=== PATIENT | male | born 1980 | race African-American/Black ===

== ENCOUNTER 2022-10-17 10:10 | Outpatient (REF) | payer MEDICAID, SELFPAY ==
--- NOTE | ~2022-10-17 | XR_ITS ---
EXAMINATION: XR HAND, RIGHT CLINICAL INFORMATION: Right hand swelling. COMPARISON: None available. TECHNIQUE: PA, lateral, and oblique views of the right hand. FINDINGS: Moderate soft tissue swelling is seen most pronounced dorsally. A 4 mm radiopaque density is seen dorsally adjacent to the distal aspect of the fifth metacarpal. There is no acute fracture or dislocation. The joint spaces are unremarkable. XR/XR hand RT min 3V IMPRESSION: Moderate soft tissue swelling most pronounced dorsally with 4 mm radiopaque foreign body as detailed above. No acute underlying osseous abnormality.
== END 2022-10-17 10:11 | disposition home or self-care (01) ==
LOC: HO.HHCX 10:10
PROVIDERS: Visit Provider Family Medicine
DX: R22.31 Localized swelling, mass and lump, right upper limb (principal)
CPT/HCPCS: 73130

== ENCOUNTER → 2022-10-21 10:20 | Outpatient (BNVA) | payer MEDICAID, SELFPAY | PROVIDERS: PCP Internal Medicine; Visit Provider Internal Medicine | DX: M54.40 Lumbago with sciatica, unspecified side (principal) | CPT/HCPCS: 99202 ==

== ENCOUNTER 2022-12-04 06:05 | Outpatient (REF) | payer MEDICAID, SELFPAY ==
--- NOTE | ~2022-12-04 | FL_ITS ---
EXAMINATION: XR FLUOROSCOPY WITH IMAGES CLINICAL INFORMATION: Lumbago with sciatica, unspecified side. COMPARISON: None available. TECHNIQUE: Fluoroscopy Supervised By: Dr. Black. Fluoroscopy Time: 0.1 minutes. Cumulative Dose: 3.59 mGy. DAP: 0.487 Gycm2. Images: 2. FINDINGS: Images obtained demonstrate contrast most likely in the epidural space in the lower lumbar spine. Please see Dr. Black's report for full details. FL/FL guidance in treatment room IMPRESSION: Fluoroscopy was provided to the referring physician for spinal injection.
== END 2022-12-04 06:06 | disposition home or self-care (01) ==
LOC: CF 06:05
PROVIDERS: Visit Provider Internal Medicine
DX: M54.40 Lumbago with sciatica, unspecified side (principal)
CPT/HCPCS: 62323; J1040

== ENCOUNTER 2022-12-04 10:03 | Outpatient (AMB) | payer MEDICAID, SELFPAY ==
[2022-12-04 10:11] VITALS: BP 100/62; PULSE 62; RESP 14; O2SAT 98
--- NOTE | 2022-12-04 10:11 | MHC.OFFVIS ---
Intake Vital Signs 12/04/22 10:11 12/04/22 11:02 BP 100/62 104/80 Blood Pressure Location Rt brachial Rt brachial Position Sitting Sitting Respiration 14 14 Pulse 62 62 Pulse Source Pulse Oximeter Pulse Oximeter Pulse Oximetry (%) 98 100 Oxygen Delivery Method Room Air Room Air Intake Visit Reasons: INTERLAMINAR L4, L5 REBECCA Allergies No Known Allergies Allergy (Verified 12/04/22 10:12) HPI INTERLAMINAR L4, L5 REBECCA HPI Details Patient presents for scheduled procedure. Denies any recent cough, cold, infection, fever or other significant changes in medical history since last office visit. [facility] Medical History (Updated 10/21/22 @ 10:56 by Kevin Garay) Chronic low back pain Heartburn Lumbago with sciatica Pruritic dermatitis Physical Exam Vital Signs: Last Vital Signs Pulse 62 12/04/22 10:11 Resp 14 12/04/22 10:11 BP 100/62 12/04/22 10:11 Pulse Ox 98 12/04/22 10:11 Oxygen Delivery Method Room Air 12/04/22 10:11 Office Procedures Joint Injection/Drain Joint Injection/Drain Details: Interlaminar epidural steroid injection, L4/5, Right parasaggital After obtaining written consent, pre-procedure blood pressure and heart rate were stable and recorded in the nursing record. The patient was placed in the prone position. The lumbar area was widely prepped with chloraprep and draped in sterile fashion. Fluoroscopic guidance was used to identify the desired interlaminar space and for needle placement. Subcutaneous 0.5% lidocaine was used to anesthetize the skin overlying the target. A 20-gauge Shaikh needle was advanced to the epidural space using loss of resistance to contrast technique under fluoroscopic AP and contralateral oblique views. There was no evidence of heme or CSF and no paresthesias were elicited with needle placement. Confirmation of epidural needle placement was performed with 1cc of omnipaque 180. Next 3 ml 0.5% lidocaine mixed with 80 mg methylprednisolone was administered epidurally with no pain elicited on injection. The needle tract tubing was then cleared with 1 ml of 0.5% lidocaine. The needle was removed, skin cleansed and a sterile bandage was applied. The patient tolerated the procedure well and no complications were encountered. Following the procedure the patient's vital signs were stable. The patient was discharged home in good condition with post-procedural instructions. Time Out: Immediately prior to the procedure, the following was verbally confirmed that there is a signed consent form and that the correct patient, planned procedure, site and side are consistent with documentation and that necessary equipment and/or blood products are available prior to the start of the case. Complications: none EBL: <5 cc Coding 59217 - Cervical Epidural/Interlaminar with fluoroscopy Procedure code (CPT) selection complete Assessment & Plan Assessment & Plan (1) Lumbago with sciatica: Code(s): M54.40 - Lumbago with sciatica, unspecified side Plan Patient is status post right parasagittal interlaminar REBECCA at L4/5. Patient tolerated procedure well and was discharged home in stable condition with discharge instructions. All questions were answered. We will follow-up via telephone or in clinic to assess response to therapy. A follow-up appointment was made during today's visit. Orders: Orders FL guidance in treatment room Today M54.40 - Lumbago with sciatica, unspecified side Coding Level of Care Code Procedure Only Diagnoses Lumbago with sciatica M54.40 CPT Codes Coding - Joint 10: 69036 - Cervical Epidural/Interlaminar with fluoroscopy ([id number])
[2022-12-04 11:02] VITALS: BP 104/80; PULSE 62; RESP 14; O2SAT 100
== END 2022-12-04 11:02 | disposition home or self-care (01) ==
PROVIDERS: PCP Internal Medicine; Visit Provider Internal Medicine
DX: M54.16 Radiculopathy, lumbar region (principal)
CPT/HCPCS: 62323

== ENCOUNTER 2023-01-20 13:00 | Outpatient (AMB) | payer MEDICAID, SELFPAY ==
--- NOTE | 2023-01-20 13:23 | A.OFFVIS_ITS ---
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 A certified conservator artifacts was present during the visit. The patient reports 40% relief following the procedure. His lower back pain continues to be bothersome. His pain is more on the right side compared to the left side. He has no access to a swimming pool. He had received a call to schedule the physical therapy, but he has not started yet. He is interested in additional treatment options for his axial back pain. He denies significant radiation down his lower extremities. Past procedure: 12/04/22: Interlaminar epidural steroid injection, L4/5, Right parasaggital: 40% relief. [facility] Medical History (Updated 01/21/23 @ 12:36 by Lonnie Black MD) Lumbago with sciatica Heartburn Pruritic dermatitis Chronic low back pain Review of Systems Const All systems reviewed & are unremarkable except as noted in HPI and below Physical Exam Vital Signs: Last Vital Signs Pulse 73 01/20/23 13:25 Resp 14 01/20/23 13:25 BP 112/69 01/20/23 13:25 Pulse Ox 97 01/20/23 13:25 Oxygen Delivery Method Room Air 01/20/23 13:25 BMI result Body Mass Index 33.7 General: Appears afebrile. Alert and oriented. Mood and affect appropriate. Follows and participates in conversation appropriately. Respiratory effort is unlabored. Able to transition from sit to stand unassisted. Ambulates with bilaterally normal heel strike and toe off. Forward flexion reproduces pain in the lumbar spine. Extension is limited, but not as painful. Results Reviewed Results Reviewed: Significant Modic changes on the endplates of L4 and L5 vertebral bodies, worse on the right side consistent with patient's distribution of pain. Assessment & Plan Assessment & Plan (1) Vertebrogenic low back pain: Code(s): M54.51 - Vertebrogenic low back pain Plan Will consider BVN ablation/intracept procedure. I informedm the patient that insurance approval is required. I will look into intercept coverage for Medicaid and update the patient accordingly. For the time being, I encouraged him to continue with core strengthening exercises. I also advised him to swim for half an hour a day. Contact information for physical therapy was provided to the patient. Scribed for Dr. Black by Kevin Garay, medical corps officer, on 01/20/2023. I, Dr. Black, have personally reviewed and agree with the information entered by the scribe. Coding Level of Care Code Est Pt Level 3 (68446) Diagnoses Vertebrogenic low back pain M54.51
[2023-01-20 13:25] VITALS: BP 112/69; PULSE 73; RESP 14; O2SAT 97; BMI 33.7
== END 2023-01-20 14:05 | disposition home or self-care (01) ==
PROVIDERS: PCP Internal Medicine; Visit Provider Internal Medicine
DX: M54.51 Vertebrogenic low back pain (principal)
CPT/HCPCS: 99213

== ENCOUNTER → 2023-01-20 13:00 | Outpatient (BNVA) | payer MEDICAID, SELFPAY | PROVIDERS: PCP Internal Medicine; Visit Provider Internal Medicine | DX: M54.41 Lumbago with sciatica, right side (principal) | CPT/HCPCS: 99212 ==

== ENCOUNTER 2023-02-17 13:39 | Outpatient (RCR) | payer MEDICAID, SELFPAY ==
--- NOTE | 2023-02-18 07:44 | MHC.PT.EP ---
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 HE REPORTS SINCE THAT TIME SYMPTOMS HAVE REMAINED ABOUT THE SAME. THIS WEEK IN PARTICULAR HAS BEEN WORSE AND HE HAS DIFFICULTY GETTING OUT OF BED, HE REPORTS THE COLD EFFECTS HIS PAIN. RECENTLY HE HAD INJECTION WITHOUT SIGNIFCANT IMPROVEMENT. HE REPORTS BENDING, LIFTING, SITTING INCREASES HIS PAIN. AND STATES THAT STANDING UP IS UNCOMFORTABLE, HE PREFERS LAYING DOWN. HE LIVES IN APARTMENT WITH 4 STAIRS TO ENTER. HE RESIDES WITH A FRIEND WHO IS ABLE TO ASSIST NEEDED. SLEEPING ON SIDE, AT MOST 3 HOURS UPON EXAM IMPAIRMENTS INCLUDE ALTERED GAIT PATTERN AND POOR POSTURAL AWARENESS DUE TO MUSCULAR LENGTH ND STRENGTH IMBALANCES, WEAKNESS OF CORE AND HIP MUSCULATURE, DECREASED HIP ROM, DECREASED LUMBAR ROM, ALTERED SOFT TISSUE MOBIITY AND INCREASED PAIN. FUNCTIONAL LIMITATIONS INCLUDE DECREASED TOLERANCE TO STATIC STANDING, WALKING, SITTING, PUSHING, PULLING, LIFTING AND CARRYING. HE REPORTS DECREAED ABILITY TO PERFORM HOMEMAKING AND SELF CARE TASKS, INABILITY TO PERFORM WORK TASKS AND DECREASED PARTICIPATION IN COMMUNITY AND FITNESS ACTIVITIES. HE REPORTS DISRUPTED SLEEP. Frequency and Duration: The patient will be seen 2 X WEEK FOR 4 WEEKS Short Term Goals: INITIATE HEP AND PROMOTE SELF MANAGEMENT OF SYMPTOMS Label Press Operator Goals: INDEPENDENT HEP TO PERFORM LIFTING FROM FLOOR TO WAIST A MINIMUM OF 20# WITH NO INCREASE IN PAIN LEVELS TO PERFORM ALL ADLs AND HOMEMAKING TAKSS WITH PAIN NO GREATR THAN 2/10 TO DEMONSTRATE FULL LE ROM AND STRENGTH EQUAL JONATHAN Treatment Plan: Modalities to reduce pain, spasms and effusion. Manual therapy to restore motion and function. Therapeutic exercise to improve strength and flexibility. Neuromuscular re-education for posture and balance. Therapeutic activities to return to functional activities of daily living. Electronically signed by: Nayeli Diop PT DPT Please sign and return to therapist. Thank you for your referral.
--- NOTE | 2023-03-06 14:15 | MHC.PT.DC ---
[facility] [place] Office [place] Office [place] Office [address] Dipesh Casas [address] [phone] F: [phone] F: [phone] F: [phone] F: [phone] Physical Therapy Discharge Report Diagnosis: LOW BACK PAIN (KP) Date of Surgery: Date of Evaluation: 02/17/23 Date of Discharge: 03/06/23 Treatments to Date: 1 Cancellations to Date: 1 No Shows to Date: 3 Discharge Status: Visit Non-compliance Discharge Summary: Attended eval only, cancelled/no showed for next 4 visits and is DCed for non-compliance Electronically signed by: Nayeli Diop PT DPT Please sign and return to therapist. Thank you for your referral.
== END 2023-03-06 14:13 | disposition home or self-care (01) ==
LOC: HO.PT 13:39
PROVIDERS: PCP Internal Medicine; Visit Provider Internal Medicine
DX: M54.40 Lumbago with sciatica, unspecified side (principal)
CPT/HCPCS: 97110; 97162

== ENCOUNTER 2023-03-10 15:41 | Outpatient (REF) | payer MEDICAID, SELFPAY ==
--- NOTE | ~2023-03-10 | XR_ITS ---
EXAMINATION: XR KNEE, RIGHT CLINICAL INFORMATION: Pain COMPARISON: None available. TECHNIQUE: Three views of the right knee. FINDINGS: The inferior extent of an intramedullary johnathan is evident in the distal femoral shaft. Right knee demonstrates no fracture, dislocation or bone lesion. No significant joint effusion is evident. There are meniscal calcifications consistent with CPPD arthropathy. XR/XR knee RT 2V IMPRESSION: 1. Meniscal calcification of the right knee consistent with CPPD arthropathy. 2. No acute fracture or subluxation of the right knee.
== END 2023-03-10 15:42 | disposition home or self-care (01) ==
LOC: HO.HHCX 15:41
PROVIDERS: Visit Provider Student in an Organized Health Care Education/Training Program
DX: M25.561 Pain in right knee (principal)
CPT/HCPCS: 73560

== ENCOUNTER 2023-04-02 10:51 | Outpatient (AMB) | payer MEDICAID, SELFPAY ==
--- NOTE | 2023-04-02 11:04 | A.OFFVIS_ITS ---
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 The patient describes his pain as sharp in nature. Most of the pain is along the medial aspect of his kn ee. Patient states that he twisted his knee approximately 1 year ago. Since that time his symptoms have gotten worse. He has been wearing a knee brace which gives him only mild relief. He has also tried Tylenol and anti- inflammatory medicines which gave him minimal relief. He has had injections in the past which gave him no relief. He states that his right knee will give out several times per day. Allergies No Known Allergies Allergy (Verified 04/02/23 11:04) Medication List - Last Reconciled 04/02/23 by Danny Burden MD cyclobenzaprine 5 mg PO TID gabapentin 300 mg PO Q8H ibuprofen 800 mg PO TID lidocaine 4% (Salonpas (lidocaine)) 1 patch topical DAILY naproxen 500 mg PO BID omeprazole 20 mg PO BID PFSH Medical History (Updated 04/02/23 @ 11:44 by Danny Burden MD) Lumbago with sciatica Heartburn Pruritic dermatitis Chronic low back pain Physical Exam Const Other: Well-nourished well-developed very friendly male awake alert and oriented x3 in no acute distress Extrem Other: Bilateral lower extremity examination shows good capillary refill, no skin lesions noted, normal sensation light touch Right knee examination shows a minimal effusion, minimal crepitus with range of motion, tenderness along his medial joint line, positive Maurice's test, no instability Results Reviewed Results Reviewed: X-rays of the patient's right knee show minimal joint space narrowing, no acute bony abnormalities Assessment & Plan Assessment & Plan (1) Right knee pain: Code(s): M25.561 - Pain in right knee Plan Mr. Ji Valentin presents with progressively worsening right knee pain and mechanical symptoms possibly due to a tear of his medial meniscus. Thus, I will send the patient for an MRI of his right knee for further evaluation. I will see him back once the MRI is completed to discuss the findings and treatment options. Feel free to call me at any time should questions regarding his orthopedic management arise. Thank you very much for asking me to see this very friendly gentleman. I spent 22 minutes in reviewing the patient's records and imaging studies, seeing the patient and documenting in the medical record. Orders: Orders MR knee RT wo con Today M25.561 - Pain in right knee Coding Level of Care Code New Pt Level 2 (89712) Diagnoses Right knee pain M25.561
== END 2023-04-02 11:39 | disposition home or self-care (01) ==
PROVIDERS: PCP Internal Medicine; Visit Provider Orthopaedic Surgery
DX: M25.561 Pain in right knee (principal)
CPT/HCPCS: 99202

== ENCOUNTER → 2023-04-02 10:51 | Outpatient (BNVA) | payer MEDICAID, SELFPAY | PROVIDERS: PCP Internal Medicine; Visit Provider Orthopaedic Surgery | DX: M25.561 Pain in right knee (principal) | CPT/HCPCS: 99202 ==

== ENCOUNTER 2023-05-14 13:09 | Outpatient (AMB) | payer MEDICAID, SELFPAY ==
--- NOTE | 2023-05-14 13:10 | MHC.OFFVIS ---
Intake Vital Signs 05/14/23 13:11 Height 5 ft 10 in Weight 235 lb BMI 33.7 Intake Visit Reasons: ov- MRI review of right knee Intake Note: Jakub is a 42 year old male who presents for MRI review of his Right knee. The patient describes his knee pain as sharp in nature. Most of the pain is along the medial and lateral aspects of his knee. He has not had a cortisone injection given into his knee. Has had injections given into his low back. Has tried Tylenol and anti-inflammatory medicines which gave him minimal relief. 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 Allergies No Known Allergies Allergy (Verified 05/14/23 13:17) Medication List - Last Reconciled 05/14/23 by Danny Burden MD cyclobenzaprine 5 mg PO TID gabapentin 300 mg PO Q8H ibuprofen 800 mg PO TID lidocaine 4% (Salonpas (lidocaine)) 1 patch topical DAILY naproxen 500 mg PO BID omeprazole 20 mg PO BID PFSH Medical History (Updated 04/02/23 @ 11:44 by Danny Burden MD) Lumbago with sciatica Heartburn Pruritic dermatitis Chronic low back pain Physical Exam Vital Signs: BMI result Body Mass Index 33.7 Const Other: Well-nourished well-developed very friendly male awake alert and oriented x3 in no acute distress Extrem Other: Bilateral lower extremity examination shows good capillary refill, no skin lesions noted, normal sensation light touch Right knee examination shows a effusion, minimal crepitus with range of motion, tenderness along his medial and lateral joint lines, positive Maurice's test, no instability Office Procedures Joint Injection/Drain Joint Injection/Drain Primary Site: right knee Prep: site was prepped using aseptic technique Injected: 40 mg of, DepoMedrol and 1% plain lidocaine Procedure: The patient tolerated the procedure well Coding 90243 - Large joint Procedure code (CPT) selection complete Results Reviewed Results Reviewed: MRI of the patient's right knee shows mild diffuse degenerative changes as well as tearing of his medial and lateral menisci, no acute bony abnormalities Assessment & Plan Assessment & Plan (1) Right knee pain: Code(s): M25.561 - Pain in right knee Plan Mr. Ji Valentin presents with right knee pain and mechanical symptoms due to tearing of his medial and lateral menisci. I had a lengthy discussion with the patient regarding the treatment options. The risks and benefits of a right knee cortisone injection were discussed at length with the patient. The patient wished to proceed. He tolerated the injection well. He will continue with activities as tolerated. He will contact me prior to his follow-up appointment in 2-3 months should any questions or concerns arise. If he fails continued non operative treatments we will further discuss the risks and benefits of right knee arthroscopic surgery. Feel free to call me at any time should questions regarding his orthopedic management arise. I spent 22 minutes in reviewing the patient's records and imaging studies, seeing the patient and documenting in the medical record. Orders: Orders AMB Joint Injection/Aspiration Today M25.561 - Pain in right knee Coding Level of Care Code Est Pt Level 2 (22239) Diagnoses Right knee pain M25.561 CPT Codes Coding - 64009 Large joint: 44205 - Large joint ([id number])
[2023-05-14 13:11] VITALS: BMI 33.7
== END 2023-05-14 13:45 | disposition home or self-care (01) ==
PROVIDERS: PCP Internal Medicine; Referring Provider Internal Medicine; Visit Provider Orthopaedic Surgery
DX: M25.561 Pain in right knee (principal)
CPT/HCPCS: 20610; 99213

== ENCOUNTER → 2023-05-14 13:09 | Outpatient (BNVA) | payer MEDICAID, SELFPAY | PROVIDERS: PCP Internal Medicine; Visit Provider Orthopaedic Surgery | DX: M25.561 Pain in right knee (principal) | CPT/HCPCS: 20610; 99212; J1020 ==

== ENCOUNTER 2023-07-15 13:40 | Outpatient (AMB) | payer MEDICAID, SELFPAY ==
[2023-07-15 13:50] VITALS: BMI 33.7
--- NOTE | 2023-07-15 13:50 | A.OFFVIS_ITS ---
Intake Vital Signs 07/15/23 13:50 Height 5 ft 10 in Weight 235 lb BMI 33.7 Intake Visit Reasons: Bilateral knee pain Intake Note: Jakub is a 43 year old male who presents with complaints of progressively worsening bilateral knee pains. The patient describes his pains as sharp in nature. He has had cortisone injections in the past which gave him minimal relief. He has not had a viscosupplementation injection. He has done physical therapy exercises which aggravated his pain. He has tried Tylenol and anti- inflammatory medicines which gave him minimal relief. He would like to hold off on surgery for as long as possible. 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: [id number] Allergies No Known Allergies Allergy (Verified 05/14/23 13:17) Medication List - Last Reconciled 07/15/23 by Danny Burden MD cyclobenzaprine 5 mg PO TID gabapentin 800 mg PO TID ibuprofen 800 mg PO TID lidocaine 4% (Salonpas (lidocaine)) 1 patch topical DAILY naproxen 500 mg PO BID omeprazole 20 mg PO BID [facility] Medical History (Updated 04/02/23 @ 11:44 by Danny Burden MD) Lumbago with sciatica Heartburn Pruritic dermatitis Chronic low back pain Physical Exam Vital Signs: BMI result Body Mass Index 33.7 Const Other: Well-nourished well-developed very friendly male awake alert and oriented x3 in no acute distress Extrem Other: Bilateral lower extremity examination shows good capillary refill, no skin lesions noted, normal sensation light touch Bilateral knee examination shows minimal effusions, mild crepitus with range of motion, pain with range of motion, no instability Assessment & Plan Assessment & Plan (1) Pain in both knees: Code(s): M25.561 - Pain in right knee; M25.562 - Pain in left knee Plan Mr. Ji Valentin presents with bilateral knee pains due to early degenerative joint disease. I had a lengthy discussion with the patient regarding the treatment options. He wishes to hold off on surgery for as long as possible. I agree with this plan. He has not gotten good relief from cortisone injections in the past. Thus, I will see whether not the patient's insurance company will cover a viscosupplementation injection for both of his knees. I will see him back once the injections are available. If he fails continued non operative treatments we will further discuss the risks and benefits of surgical intervention. Feel free to call me at any time should questions regarding his orthopedic management arise. I spent 22 minutes in reviewing the patient's records and imaging studies, seeing the patient and documenting in the medical record. Coding Level of Care Code Est Pt Level 2 (62589) Diagnoses Pain in both knees M25.561; M25.562
== END 2023-07-15 14:10 | disposition home or self-care (01) ==
LOC: HO.HOS 13:40
PROVIDERS: PCP Internal Medicine; Visit Provider Orthopaedic Surgery
DX: M25.561 Pain in right knee (principal); M25.562 Pain in left knee
CPT/HCPCS: 99213

== ENCOUNTER → 2023-07-15 13:40 | Outpatient (BNVA) | payer MEDICAID, SELFPAY | PROVIDERS: PCP Internal Medicine; Visit Provider Orthopaedic Surgery | DX: M25.561 Pain in right knee (principal); M25.562 Pain in left knee | CPT/HCPCS: 99212 ==

== ENCOUNTER 2023-10-29 09:06 | Outpatient (AMB) | payer MEDICAID, SELFPAY ==
--- NOTE | 2023-10-29 09:28 | A.OFFVIS_ITS ---
Intake Visit Reasons: Bilateral knee pain Intake Note: Jakub is a 43 year old male who presents with complaints of bilateral knee pains. He describes his pains as sharp in nature. His pains have gotten worse over the last year in spite of continued non operative treatments. He has done physical therapy exercises which aggravated his pain. He has also tried Tylenol and naproxen which gave him minimal relief. He wishes to hold off on surgery for as long as possible. Allergies No Known Allergies Allergy (Verified 10/29/23 09:55) Medication List - Last Reconciled 10/29/23 by Danny Burden MD cyclobenzaprine 5 mg PO TID gabapentin 800 mg PO TID ibuprofen 800 mg PO TID lidocaine 4% (Salonpas (lidocaine)) 1 patch topical DAILY naproxen 500 mg PO BID omeprazole 20 mg PO BID [facility] Medical History (Updated 10/29/23 @ 15:05 by Danny Burden MD) Lumbago with sciatica Heartburn Pruritic dermatitis Chronic low back pain Physical Exam Const Other: Well-nourished well-developed very friendly male awake alert and oriented x3 in no acute distress Extrem Other: Bilateral lower extremity examination shows good capillary refill, no skin lesions noted, normal sensation light touch Bilateral knee examination shows minimal effusions, palpable crepitus with range of motion, pain with range of motion, no instability-rays of Office Procedures Joint Injection/Drain Joint Injection/Drain Primary Site: left knee Injected: 20 mg of (Euflexxa viscosupplementation) and 1% plain lidocaine Procedure: The patient tolerated the procedure well Coding 12573 - Large joint Procedure code (CPT) selection complete Joint Injection/Drain Joint Injection/Drain Primary Site: right knee Prep: site was prepped using aseptic technique Injected: 20 mg of (Euflexxa viscosupplementation) and 1% plain lidocaine Procedure: The patient tolerated the procedure well Coding 53898 - Large joint Procedure code (CPT) selection complete Results Reviewed Results Reviewed: X-rays of the patient's bilateral knee show joint space narrowing, subchondral sclerosis, no acute bony abnormalities Assessment & Plan Assessment & Plan (1) Osteoarthritis of left knee: Code(s): M17.12 - Unilateral primary osteoarthritis, left knee Category: Medical (2) Osteoarthritis of right knee: Code(s): M17.11 - Unilateral primary osteoarthritis, right knee Category: Medical (3) Pain in both knees: Code(s): M25.561 - Pain in right knee; M25.562 - Pain in left knee Plan Mr. Ji Valentin presents with bilateral knee pains due to degenerative joint disease. I had a lengthy discussion with the patient regarding the treatment options. He wishes to hold off on surgery if at all possible. I agree with this plan. The risks and benefits of bilateral knee Euflexxa viscosupplementation injections were discussed at length with the patient. The patient wished to proceed. He tolerated the injections well. Will continue with his activity modifications. He will follow up next week as scheduled. Feel free to call me at any time should questions regarding his orthopedic management arise. I spent 21 minutes in reviewing the patient's records and imaging studies, seeing the patient and documenting in the medical record. Orders: Orders AMB Joint Injection/Aspiration Today M17.12 - Unilateral primary osteoarthritis, left knee AMB Joint Injection/Aspiration Today M17.11 - Unilateral primary osteoarthritis, right knee Coding Level of Care Code Est Pt Level 3 (67353) Diagnoses Osteoarthritis of left knee M17.12 Osteoarthritis of right knee M17.11 Pain in both knees M25.561; M25.562 CPT Codes Coding - 14840 Large joint: 26417 - Large joint ([id number]) Coding - 61353 Large joint: 10355 - Large joint ([id number])
== END 2023-10-29 10:23 | disposition home or self-care (01) ==
PROVIDERS: PCP Internal Medicine; Visit Provider Orthopaedic Surgery
DX: M17.0 Bilateral primary osteoarthritis of knee (principal)
CPT/HCPCS: 20610; 99213

== ENCOUNTER → 2023-10-29 09:06 | Outpatient (BNVA) | payer MEDICAID, SELFPAY | PROVIDERS: PCP Internal Medicine; Visit Provider Orthopaedic Surgery | DX: M17.0 Bilateral primary osteoarthritis of knee (principal) | CPT/HCPCS: 20610; 99212; J7323 ==

== ENCOUNTER 2023-11-06 09:28 | Outpatient (AMB) | payer MEDICAID, SELFPAY ==
--- NOTE | 2023-11-06 09:56 | MHC.OFFVIS ---
Intake Visit Reasons: Inj- Kiko Knee Euflexxa #2 Intake Note: Jakub is a 43 year old male who presents to the office today for Bilateral Knee Euflexxa injections #2. He states that he got mild relief from the 1st set of injections. He continues with his home exercise program. Allergies No Known Allergies Allergy (Verified 10/29/23 09:55) Medication List - Last Reconciled 11/07/23 by Danny Burden MD cyclobenzaprine 5 mg PO TID gabapentin 800 mg PO TID ibuprofen 800 mg PO TID lidocaine 4% (Salonpas (lidocaine)) 1 patch topical DAILY naproxen 500 mg PO BID omeprazole 20 mg PO BID [facility] Medical History (Updated 10/29/23 @ 15:05 by Danny Burden MD) Lumbago with sciatica Heartburn Pruritic dermatitis Chronic low back pain Physical Exam Const Other: Well-nourished well-developed very friendly male awake alert and oriented x3 in no acute distress Extrem Other: Bilateral lower extremity examination shows good capillary refill, no skin lesions noted, normal sensation light touch Bilateral knee examination shows minimal effusions, palpable crepitus with range of motion, no instability Office Procedures Joint Injection/Drain Joint Injection/Drain Primary Site: left knee Prep: site was prepped using aseptic technique Injected: 20 mg of (Euflexxa viscosupplementation) and 1% plain lidocaine Procedure: The patient tolerated the procedure well Coding 17197 - Large joint Procedure code (CPT) selection complete Joint Injection/Drain Joint Injection/Drain Primary Site: right knee Prep: site was prepped using aseptic technique Injected: 20 mg of (Euflexxa viscosupplementation) and 1% plain lidocaine Procedure: The patient tolerated the procedure well Coding 56470 - Large joint Procedure code (CPT) selection complete Assessment & Plan Assessment & Plan (1) Osteoarthritis of left knee: Code(s): M17.12 - Unilateral primary osteoarthritis, left knee Category: Medical (2) Osteoarthritis of right knee: Code(s): M17.11 - Unilateral primary osteoarthritis, right knee Category: Medical Plan Mr. Ji Valentin presents with bilateral knee pains due to degenerative joint disease. The risks and benefits of a 2nd set of Euflexxa injections were discussed at length with the patient. The patient wished to proceed. He tolerated the injections well. He will continue with his home exercise program. He will follow up next week as scheduled. Feel free to call me at any time should questions regarding his orthopedic management arise. Orders: Orders AMB Joint Injection/Aspiration 11/06/23 M17.12 - Unilateral primary osteoarthritis, left knee AMB Joint Injection/Aspiration 11/06/23 M17.11 - Unilateral primary osteoarthritis, right knee Coding Level of Care Code Procedure Only Diagnoses Osteoarthritis of left knee M17.12 Osteoarthritis of right knee M17.11 CPT Codes Coding - 64739 Large joint: 46664 - Large joint ([id number]) Coding - 22295 Large joint: 26056 - Large joint ([id number])
== END 2023-11-06 10:23 | disposition home or self-care (01) ==
PROVIDERS: PCP Internal Medicine; Visit Provider Orthopaedic Surgery
DX: M17.0 Bilateral primary osteoarthritis of knee (principal)
CPT/HCPCS: 20610

== ENCOUNTER → 2023-11-06 09:28 | Outpatient (BNVA) | payer MEDICAID, SELFPAY | PROVIDERS: PCP Internal Medicine; Visit Provider Orthopaedic Surgery | DX: M17.0 Bilateral primary osteoarthritis of knee (principal) | CPT/HCPCS: 20610; J7323 ==

== ENCOUNTER 2023-11-12 09:46 | Outpatient (AMB) | payer MEDICAID, SELFPAY ==
--- NOTE | 2023-11-12 09:55 | MHC.OFFVIS ---
Vital Signs 11/12/23 09:56 Height 5 ft 10 in Weight 235 lb BMI 33.7 Intake Visit Reasons: Bilateral knee pain Intake Note: Jakub is a 43 year old male who presents for follow-up of his bilateral knee pains. At his last 2 appointments he received Euflexxa injections into both of his knees. He states that he has gotten minimal relief from the injections. He states that his knees might actually feel more ?sore? than prior to the injections. He does not wish for the 3rd set of injections which were scheduled for today. Folding Machine Feeder Required: Yes Folding Machine Feeder Language: Honduran Allergies No Known Allergies Allergy (Verified 11/12/23 09:56) Medication List - Last Reconciled 11/13/23 by Danny Burden MD cyclobenzaprine 5 mg PO TID gabapentin 800 mg PO TID ibuprofen 800 mg PO TID lidocaine 4% (Salonpas (lidocaine)) 1 patch topical DAILY naproxen 500 mg PO BID omeprazole 20 mg PO BID [facility] Medical History (Updated 11/13/23 @ 07:50 by Danny Burden MD) Lumbago with sciatica Heartburn Pruritic dermatitis Chronic low back pain Physical Exam Vital Signs: BMI result Body Mass Index 33.7 Const Other: Well-nourished well-developed very friendly male awake alert and oriented x3 in no acute distress Extrem Other: Bilateral lower extremity examination shows good capillary refill, no skin lesions noted, normal sensation light touch Bilateral knee examination shows minimal effusions, mild crepitus with range of motion, no instability Assessment & Plan Assessment & Plan (1) Pain in both knees: Code(s): M25.561 - Pain in right knee; M25.562 - Pain in left knee Category: Medical Plan Mr. Ji Valentin presents for follow-up of his bilateral knee pains due to degenerative joint disease. I had a lengthy discussion with the patient regarding the treatment options. Does not wish to proceed with the 3rd set of Euflexxa injections. He will continue with his activity modifications. He will follow up with me on an as-needed basis should his symptoms worsen in any way. Feel free to call me at any time should questions regarding his orthopedic management arise. I spent 21 minutes in reviewing the patient's records and imaging studies, seeing the patient and documenting in the medical record. Coding Level of Care Code Est Pt Level 3 (73626) Diagnoses Pain in both knees M25.561; M25.562
[2023-11-12 09:56] VITALS: BMI 33.7
== END 2023-11-12 10:11 | disposition home or self-care (01) ==
PROVIDERS: PCP Internal Medicine; Referring Provider Internal Medicine; Visit Provider Orthopaedic Surgery
DX: M25.561 Pain in right knee (principal); M25.562 Pain in left knee
CPT/HCPCS: 99212

== ENCOUNTER → 2023-11-12 09:46 | Outpatient (BNVA) | payer MEDICAID, SELFPAY | PROVIDERS: PCP Internal Medicine; Visit Provider Orthopaedic Surgery | DX: M25.561 Pain in right knee (principal); M25.562 Pain in left knee | CPT/HCPCS: 99212 ==

== ENCOUNTER 2024-01-22 08:09 | Outpatient (AMB) | payer MEDICAID, SELFPAY ==
--- NOTE | 2024-01-22 08:22 | A.OFFVIS_ITS ---
Intake Visit Reasons: Left knee pain and giving way Intake Note: Jakub is a 43 year old male who presents with complaints of progressively worsening left knee pain and giving way. He describes his pain as sharp and severe in nature. Most of the pain is along the medial aspect of his knee. He has failed the last 6 weeks of conservative treatment which included physical therapy exercises, topical creams, muscle relaxants, Tylenol and anti- inflammatory medicines. The patient has had both cortisone injections and viscosupplementation injections which gave him minimal relief. He states that his left knee will give out several times per day. The patient states that he has similar symptoms, but less severe, in his right knee. Environmental Health And Safety Intern Required: Yes Environmental Health And Safety Intern Language: Branch Examiner Name: Marco([id number]) Allergies No Known Allergies Allergy (Verified 01/22/24 08:22) Medication List - Last Reconciled 01/22/24 by Danny Burden MD cyclobenzaprine 5 mg PO TID gabapentin 800 mg PO TID ibuprofen 800 mg PO TID lidocaine 4% (Salonpas (lidocaine)) 1 patch topical DAILY omeprazole 20 mg PO BID [facility] Medical History (Updated 01/22/24 @ 08:38 by Danny Burden MD) Lumbago with sciatica Heartburn Pruritic dermatitis Chronic low back pain Physical Exam Const Other: Well-nourished well-developed very friendly male awake alert and oriented x3 in no acute distress Extrem Other: Bilateral lower extremity examination shows good capillary refill, no skin lesions noted, normal sensation light touch Left knee examination shows a minimal effusion, mild crepitus with range of motion, tenderness along his medial joint line, positive Maurice's test, no instability Results Reviewed Results Reviewed: Standing full weight-bearing x-rays of the patient's left knee show mild diffuse joint space narrowing, no acute bony abnormalities Assessment & Plan Assessment & Plan (1) Tear of medial meniscus of left knee: Code(s): S83.242A - Other tear of medial meniscus, current injury, left knee, initial encounter Category: Medical Plan Mr. Ji Valentin presents with progressively worsening left knee pain and mechanical symptoms most likely due to a tear of his medial meniscus. I will send the patient for an MRI of his left knee for further evaluation. I will see him back once the MRI is completed to discuss the findings and treatment options. Feel free to call me at any time should questions regarding his orthopedic management arise. I spent 22 minutes in reviewing the patient's records and imaging studies, seeing the patient and documenting in the medical record. Orders: Orders XR knee LT 3V Today M25.562 - Pain in left knee MR knee LT wo con Today S83.242A - Other tear of medial meniscus, current injury, left knee, initial encounter Coding Level of Care Code Est Pt Level 3 (49501) Complex EM visit Add On G2211 Diagnoses Tear of medial meniscus of left knee S83.242A
== END 2024-01-22 08:39 | disposition home or self-care (01) ==
PROVIDERS: PCP Internal Medicine; Referring Provider Internal Medicine; Visit Provider Orthopaedic Surgery
DX: S83.242A Other tear of medial meniscus, current injury, left knee, initial encounter (principal)
CPT/HCPCS: 99213

== ENCOUNTER 2024-01-22 11:11 | Outpatient (REF) | payer MEDICAID, SELFPAY | END 2024-01-22 11:12 | disposition home or self-care (01) | LOC: HO.HOSX 11:11 | PROVIDERS: Visit Provider Orthopaedic Surgery | DX: M25.562 Pain in left knee (principal); S83.242A Other tear of medial meniscus, current injury, left knee, initial encounter | CPT/HCPCS: 73562; 99212 ==

== ENCOUNTER 2024-01-26 17:00 | Outpatient (RCR) | payer MEDICAID, SELFPAY | END 2024-02-10 14:27 | disposition home or self-care (01) | LOC: HO.PT 17:00 | PROVIDERS: PCP Internal Medicine; Visit Provider Internal Medicine | DX: M54.51 Vertebrogenic low back pain (principal); M54.17 Radiculopathy, lumbosacral region | CPT/HCPCS: 97110; 97162; 97530 ==

== ENCOUNTER 2024-03-23 07:23 | Outpatient (REF) | payer MEDICAID, SELFPAY ==
--- NOTE | ~2024-03-23 | MR_ITS ---
EXAMINATION: MR KNEE WITHOUT CONTRAST, LEFT CLINICAL INFORMATION: Left knee pain and occasional swelling. Evaluate for a medial meniscal tear. COMPARISON: Left knee radiographs dated 01/22/2024. TECHNIQUE: MRI of the knee without contrast was performed using routine sequences on a high-field scanner. FINDINGS: MENISCI: Medial Meniscus: Degenerative intrasubstance signal within the posterior horn without definite articular surface tearing. Lateral Meniscus: Diffuse complex tearing involving the majority of the lateral meniscus with near-complete absence of the meniscal body. There is a superiorly displaced meniscal flap at the anterior aspect of the meniscal body measuring up to 1.1 cm in craniocaudal dimension. LIGAMENTS: Cruciate: Intact Collateral: Minimal edema adjacent to the medial collateral ligament which could represent a grade 1 sprain. Intact fibular collateral ligament. EXTENSOR MECHANISM: Intact quadriceps tendon. Mild proximal patellar tendinosis. No transverse tendon tear or tendon retraction. Normal patellofemoral alignment. ARTICULAR CARTILAGE/BONE: Patellofemoral Compartment: Patellar articular cartilage signal heterogeneity. Shallow trochlea with diffuse articular cartilage signal heterogeneity and surface irregularity. Areas of full-thickness fissuring at the medial trochlea where there are tiny marginal osteophytes. Medial Compartment: Intact articular cartilage. Lateral Compartment: Diffuse articular cartilage signal heterogeneity and surface irregularity with [id number] posterior weightbearing and posterior non-weightbearing articular cartilage loss. Minimal subchondral cystic change. [id number] marginal osteophytes. Cortical irregularity redemonstrated within the distal femur, consistent with a remote, healed fracture. Associated postsurgical artifact. JOINT FLUID AND BURSAE: Small joint effusion. MR/MR knee LT wo con IMPRESSION: 1. Moderate lateral compartment osteoarthritis. Diffuse complex tearing involving the majority of the lateral meniscus with near-complete absence of the meniscal body. Superiorly displaced meniscal flap adjacent to the anterior aspect of the meniscal body. 2. Degenerative intrasubstance signal within the medial meniscus posterior horn without articular surface tearing. 3. Possible grade 1 sprain of the medial collateral ligament. 4. Mild proximal patellar tendinosis. 5. Mild patellofemoral compartment osteoarthritis. Small joint effusion. Electronically signed by: Ben Yun MD 04/01/2024 03:01 PM [facility] [place]
== END 2024-03-23 07:24 | disposition home or self-care (01) ==
LOC: HO.MRI 07:23
PROVIDERS: PCP Internal Medicine; Visit Provider Orthopaedic Surgery
DX: S83.242A Other tear of medial meniscus, current injury, left knee, initial encounter (principal)
CPT/HCPCS: 73721

== ENCOUNTER 2024-04-12 09:22 | Outpatient (AMB) | payer MEDICAID, SELFPAY ==
[2024-04-12 09:25] VITALS: BMI 33.7
--- NOTE | 2024-04-12 09:25 | A.OFFVIS_ITS ---
Vital Signs 04/12/24 09:25 Height 5 ft 10 in Weight 235 lb BMI 33.7 Intake Visit Reasons: Left knee pain and giving way Intake Note: Jakub is a 43 year old male who presents with complaints of progressively worsening left knee pain and giving way. He describes his pain as sharp and severe in nature. Most of the pain is along the medial aspect of his knee. He has failed the last 6 weeks of conservative treatment which included physical therapy exercises, topical creams, muscle relaxants, Tylenol and anti- inflammatory medicines. The patient has had both cortisone injections and viscosupplementation injections which gave him minimal relief. He states that his left knee will give out several times per day. The patient states that he has similar symptoms, but less severe, in his right knee. General Internal Medicine Doctor Required: Yes General Internal Medicine Doctor Services: General Internal Medicine Doctor Present General Internal Medicine Doctor Name: ANA MARIA Huang/MARGARITA Allergies No Known Allergies Allergy (Verified 04/12/24 09:25) Medication List - Last Reconciled 04/12/24 by Danny Burden MD cyclobenzaprine 5 mg PO TID gabapentin 800 mg PO TID ibuprofen 800 mg PO TID lidocaine 4% (Salonpas (lidocaine)) 1 patch topical DAILY omeprazole 20 mg PO BID oxycodone-acetaminophen 5-325 mg 1 tab PO Q12H PRN PFSH Medical History Lumbago with sciatica Heartburn Pruritic dermatitis Chronic low back pain Physical Exam Vital Signs: BMI result Body Mass Index 33.7 Const Other: Well-nourished well-developed very friendly male awake alert and oriented x3 in no acute distress Extrem Other: Bilateral lower extremity examination shows good capillary refill, no skin lesions noted, normal sensation light touch Left knee examination shows a minimal effusion, minimal crepitus with range of motion, tenderness along his medial and lateral joint lines, positive Maurice's test, no instability Results Reviewed Results Reviewed: Standing full weight-bearing x-rays of the patient's left knee show mild diffuse joint space narrowing, no acute bony abnormalities MRI of the patient's left knee shows mild diffuse degenerative changes as well as tearing of the medial and lateral menisci Assessment & Plan Assessment & Plan (1) Tear of medial meniscus of left knee: Code(s): S83.242A - Other tear of medial meniscus, current injury, left knee, initial encounter Category: Medical Plan Mr. Ji Valentin presents with progressively worsening left knee pain and mechanical symptoms due to tearing of his medial and lateral menisci. I had a lengthy discussion with the patient regarding the treatment options. At this point he has failed continued non operative treatments. The risks and benefits of left knee arthroscopic surgery were discussed at length with the patient. The patient wishes to proceed with surgery. Surgery will most likely involve left knee arthroscopic partial medial and lateral meniscectomies. The patient does understand that he may not get 100% relief of his symptoms depending on the severity of his degenerative changes. He will be scheduled for next available date. He will follow-up as instructed. Feel free to call me at any time should questions regarding his orthopedic management arise. I spent 20 minutes in reviewing the patient's records and imaging studies, seeing the patient and documenting in the medical record. Coding Level of Care Code Est Pt Level 3 (96129) Complex EM visit Add On G2211 Diagnoses Tear of medial meniscus of left knee S83.242A
== END 2024-04-12 09:42 | disposition home or self-care (01) ==
PROVIDERS: PCP Internal Medicine; Visit Provider Orthopaedic Surgery
DX: S83.242A Other tear of medial meniscus, current injury, left knee, initial encounter (principal)
CPT/HCPCS: 99214

== ENCOUNTER → 2024-04-12 09:22 | Outpatient (BNVA) | payer MEDICAID, SELFPAY | PROVIDERS: PCP Internal Medicine; Visit Provider Orthopaedic Surgery | DX: S83.242A Other tear of medial meniscus, current injury, left knee, initial encounter (principal) | CPT/HCPCS: 99212 ==

== ENCOUNTER 2024-05-17 05:37 | Day surgery (SDC) | payer MEDICAID, SELFPAY ==
[2024-05-13 13:03] VITALS: BMI 33.7
--- NOTE | 2024-05-14 12:22 | HO.ANESPROP2 ---
Documented by User: Tere Hammer NP 05/14/24 12:22 HPI - Anesthesia Eval Consult details Narrative: 43yo M for Left Knee Arthroscopy with partial medial and lateral meniscectomy PMFSH Active Problems Active Problems: All Active Problems Tear of medial meniscus of left knee (Acute) Left knee pain (Acute) Bilateral knee pain (Acute) Osteoarthritis of right knee (Acute) Osteoarthritis of left knee (Acute) Right knee pain (Acute) Vertebrogenic low back pain (Acute) Lumbago with sciatica (Acute) Past Medical History Medical History Lumbago with sciatica Heartburn Pruritic dermatitis Chronic low back pain Surgical History Surgical History Surgical history unknown Social History Social History Are you a primary insurance healthcare representative to a significant other at home: No Do you presently have visiting nurse or other home services: No Patient Tobacco Use Status: Current everyday Tobacco user Cigarettes Per Day: 10 Use of substances other than those prescribed or required for medical reasons: No Have you been hit, kicked, punched, or otherwise hurt by someone within the past year? If so, by whom?: No Are you DNR?: No Advance Directives: No Advance Directives Information Provided: Yes Advance Directives on File: No Recently lost weight without trying: No Nutrition Risks: No Nutritional Risk Poor oral hygiene: No Meds Allergies Allergy/AdvReac Type Severity Reaction Status Date / Time No Known Allergies Allergy Verified 05/17/24 06:23 Active Medications: Current Medications Cefazolin Sodium/Dextrose (Ancef) 2 gm in 50 mls @ 100 mls/hr IV PREOP ONE Stop: 05/17/24 06:11 Home Medications ?Medication ?Instructions ?Recorded ?Confirmed ?Last Taken ?Type cyclobenzaprine 5 mg tablet 5 mg PO TID 10/21/22 05/17/24 Unknown History ibuprofen 800 mg tablet 800 mg PO TID 10/21/22 05/17/24 Unknown History lidocaine 4 % topical patch 1 patch topical DAILY 10/21/22 05/17/24 Unknown History (Salonpas (lidocaine)) omeprazole 20 mg capsule,delayed 20 mg PO BID 10/21/22 05/17/24 Unknown History release gabapentin 800 mg tablet 800 mg PO TID 07/15/23 05/17/24 Unknown History oxycodone-acetaminophen 5 mg-325 1 tab PO Q12H PRN severe pain 04/12/24 05/17/24 Unknown History mg tablet Exam Height,Weight and Vital Signs: Height 5 ft 10 in Weight 106.594 kg Assessment and Plan Assessment Anesthesia Assessment: Chart Reviewed Documented by User: Isa Garcia MD 05/17/24 07:30 PMFSH Past Medical History Medical History Lumbago with sciatica Heartburn Pruritic dermatitis Chronic low back pain Family History Family history of problems with anesthesia: No Surgical History Surgical History Surgical history unknown History of Problems with Anesthesia: No Social History Social History Are you a primary insurance healthcare representative to a significant other at home: No Do you presently have visiting nurse or other home services: No Patient Tobacco Use Status: Current everyday Tobacco user Cigarettes Per Day: 10 Use of substances other than those prescribed or required for medical reasons: No Have you been hit, kicked, punched, or otherwise hurt by someone within the past year? If so, by whom?: No Are you DNR?: No Advance Directives: No Advance Directives Information Provided: Yes Advance Directives on File: No Recently lost weight without trying: No Nutrition Risks: No Nutritional Risk Poor oral hygiene: No Meds Allergies Allergy/AdvReac Type Severity Reaction Status Date / Time No Known Allergies Allergy Verified 05/17/24 06:23 Home Medications ?Medication ?Instructions ?Recorded ?Confirmed ?Last Taken ?Type cyclobenzaprine 5 mg tablet 5 mg PO TID 10/21/22 05/17/24 Unknown History ibuprofen 800 mg tablet 800 mg PO TID 10/21/22 05/17/24 Unknown History lidocaine 4 % topical patch 1 patch topical DAILY 10/21/22 05/17/24 Unknown History (Salonpas (lidocaine)) omeprazole 20 mg capsule,delayed 20 mg PO BID 10/21/22 05/17/24 Unknown History release gabapentin 800 mg tablet 800 mg PO TID 07/15/23 05/17/24 Unknown History oxycodone-acetaminophen 5 mg-325 1 tab PO Q12H PRN severe pain 04/12/24 05/17/24 Unknown History mg tablet Exam Airway Mallampati Class: II TM Dist: >3cm Neck ROM: Full Heart: rrr Lungs: cta Assessment and Plan Assessment Anesthesia Assessment: Anesthesia Plan Discussed Final Anesthetic Review Family History of Problems with Anesthesia: No History of Problems with Anesthesia: No NPO: Yes ASA Class: II Final Preanesthetic Review: No Changes in Pt Med Stat, Meds/Allgs Chart Reviewed, Consent Obtained/Reviewed and Anes Risks/Benef Reviewed Patient Risk: Intermediate Procedure Risk: Low Anesthetic Plan Anesthetic Plan: GA Disposition: Standard PACU
[2024-05-17] VITALS (10 sets, daily range): BP systolic 116–130; BP diastolic 46–79; PULSE 55–67; RESP 10–17; TEMP 36.6–36.7; O2SAT 94–99; BMI 33.7
[2024-05-17] MEDS: Lactated Ringers 1,000 ML 100 ML IVCONT (06:46)
--- NOTE | 2024-05-17 06:56 | PC.NURSE ---
Pt with $820.00 in liu on person. Offered security lock up option, pt declined. Pt kept liu in wallet inside of sweater. Co signed by charge nurse.
--- NOTE | 2024-05-17 08:42 | P.BOP_ITS ---
Brief Operative Note Date of Service: 05/17/24 Pre-op diagnosis: Left knee medial meniscus tear, left knee lateral meniscus tear, left knee degenerative joint disease Post-op diagnosis: same Procedure: Left knee diagnostic arthroscopy with left knee arthroscopic partial medial and lateral meniscectomies, left knee arthroscopic chondroplasty of the trochlear groove articular surface Implants: None Surgeon: Danny Burden MD Anesthesia: GLMA Was an Automobile Damage Appraiser used for this Procedure?: No Estimated blood loss (mL): 10 Pathology: none sent Condition: stable Disposition: PACU
--- NOTE | 2024-05-17 08:43 | P.OP_ITS ---
Operative Note Operative Note Date of Service: 05/17/24 Narrative: After the patient was identified as Jakub Valentin and his left knee was initialed by myself they were brought to the operating room where general anesthesia was induced by the anesthesiologist in routine fashion. The patient was given 2 g of IV Ancef preoperatively for infection prophylaxis. The patient's left lower extremity was prepped and draped in sterile fashion. A formal time-out was completed. Marcaine was injected into the planned incision sites as well as the patient's left knee joint. A #11 scalpel blade was used to make an anterolateral portal 1 cm proximal to the joint line and 1 cm lateral to the patellar tendon. Blunt trocar technique was used to enter the suprapatellar pouch with the knee in extension. Diagnostic arthroscopy showed multiple bands of thickened plica which would be excised at the end of the procedure. There were no loose bodies or abnormalities found in either the medial or lateral gutters. The articular surface of the patella showed diffuse grades 1 and 2 degenerative changes. The trochlear groove articular surface showed diffuse grades 2 and 3 degenerative changes. The patient's knee was flexed to 45 degrees and a valgus force was placed upon it. The medial compartment was entered. An anteromedial portal was made 1 cm proximal to the joint line and 1 cm medial to the patellar tendon. Probing of the medial meniscus showed a radial tear of the anterior horn. A partial medial meniscectomy was performed using the arthroscopic shaver. Following the partial meniscectomy the remainder of the meniscus tissue was stable. There were diffuse grades 1 and 2 degenerative changes of the medial femoral condyle as well as grade 1 degenerative changes of the medial tibial plateau. The articular surfaces of the medial femoral condyle and medial tibial plateau were already smooth so no chondroplasty was indicated. The patient's knee was placed into a neutral position. There was no injury to the anterior cruciate ligament. The patient's knee was then placed in the figure of 4 position and the lateral compartment was entered. There was a radial tear of the anterior horn of the lateral meniscus. A partial lateral meniscectomy was performed using the arthroscopic shaver. Following the partial meniscectomy the remainder of the meniscus tissue was stable. There were minimal degenerative changes of the lateral femoral condyle and lateral tibial plateau. The patient's knee was once again brought into extension and the suprapatellar pouch was entered. The arthroscopic shaver and the ArthroCare Wand were used to excise the thickened bands of plica. The articular surface of the trochlear groove was then made smooth using the arthroscopic shaver. The undersurface of the patella was already smooth so no chondroplasty was indicated. The knee joint was irrigated and then drained. All arthroscopic instruments were removed. The 2 portals were closed with 3-0 nylon interrupted suture. The knee joint was injected with Marcaine. Dry st erile dressing and Zach bandages were placed over the patient's knee. The patient was awoken and extubated in the operating room. The patient was transferred to the recovery room in stable condition.
[2024-05-17] MEDS: cefTRIAXone sodium 1 GM VIAL IVPUSH (08:52)
[2024-05-17] MEDS: fentaNYL citrate/PF 100 MCG/2 ML VIAL 25 MCG IVPUSH ×3 (09:00→09:10)
== END 2024-05-17 10:19 | disposition home or self-care (01) ==
PROVIDERS: PCP Internal Medicine; Visit Provider Orthopaedic Surgery
PROC: (CPT 29870; principal; 2024-05-17 07:30)
DX: S83.242A Other tear of medial meniscus, current injury, left knee, initial encounter (principal); S83.282A Other tear of lateral meniscus, current injury, left knee, initial encounter; M17.12 Unilateral primary osteoarthritis, left knee; M67.52 Plica syndrome, left knee; M23.52 Chronic instability of knee, left knee; M25.562 Pain in left knee; G89.29 Other chronic pain; M54.40 Lumbago with sciatica, unspecified side; X58.XXXA Exposure to other specified factors, initial encounter; Y93.9 Activity, unspecified; Y92.9 Unspecified place or not applicable; Y99.9 Unspecified external cause status; R12 Heartburn; L30.8 Other specified dermatitis; Z79.899 Other long term (current) drug therapy; Z79.1 Long term (current) use of non-steroidal anti-inflammatories (NSAID)
CPT/HCPCS: 29880; 29876; J0131; J0171; J0690; J0696; J1100; J1885; J2003; J2405; J2704; J2795; J3010

== ENCOUNTER → 2024-05-17 05:37 | Outpatient (BNV) | payer MEDICAID, SELFPAY | PROVIDERS: PCP Internal Medicine; Visit Provider Orthopaedic Surgery | DX: S83.242A Other tear of medial meniscus, current injury, left knee, initial encounter (principal); S83.282A Other tear of lateral meniscus, current injury, left knee, initial encounter | CPT/HCPCS: 29880 ==

== ENCOUNTER 2024-06-01 09:09 | Outpatient (AMB) | payer MEDICAID, SELFPAY ==
[2024-06-01 09:12] VITALS: BMI 33.7
--- NOTE | 2024-06-01 09:12 | MHC.OFFVIS ---
Vital Signs 06/01/24 09:12 Height 5 ft 10 in Weight 235 lb BMI 33.7 Intake Visit Reasons: PO LT knee 05/17/24 Intake Note: Jakub is a 43 year old male who presents today for his first post operative visit after undergoing left knee arthroscopic surgery on 05/17/24. He reports mild to moderate discomfort in his left knee. He denies any fevers or chills. He continues with his activity modifications. Change Management Facilitator Required: Yes Change Management Facilitator Language: Secondary Social Studies Teacher Services: Change Management Facilitator Present Change Management Facilitator Name: JassonANA MARIA workman/MARGARITA Allergies No Known Allergies Allergy (Verified 06/01/24 09:13) Medication List - Last Reconciled 06/01/24 by Danny Burden MD cyclobenzaprine 5 mg PO TID gabapentin 800 mg PO TID ibuprofen 800 mg PO TID lidocaine 4% (Salonpas (lidocaine)) 1 patch topical DAILY omeprazole 20 mg PO BID oxycodone 5 mg PO Q6H PRN PFSH Medical History Lumbago with sciatica Heartburn Pruritic dermatitis Chronic low back pain Surgical History Surgical history unknown Social History Are you a primary ambulatory care coordinator to a significant other at home: No Do you presently have visiting nurse or other home services: No Patient Tobacco Use Status: Current everyday Tobacco user Cigarettes Per Day: 10 Physical Exam Vital Signs: BMI result Body Mass Index 33.7 Extrem Other: Left knee examination shows that the surgical incisions are healing well, no erythema, mild discomfort with range of motion, no instability Assessment & Plan Assessment & Plan (1) Left knee pain: Code(s): M25.562 - Pain in left knee Category: Medical Plan Mr. Ji Valentin is doing well after undergoing left knee arthroscopic surgery on 05/17/2024. His sutures were removed and Steri-Strips placed over his incisions. He will continue with his home stretching program. He will contact me prior to his follow-up appointment in 4-6 weeks should any questions or concerns arise. Feel free to call me at any time should questions regarding his orthopedic management arise. Coding Level of Care Code Global (59196) Diagnoses Left knee pain M25.562
== END 2024-06-01 09:24 | disposition home or self-care (01) ==
LOC: HO.HOS 09:09
PROVIDERS: PCP Internal Medicine; Visit Provider Orthopaedic Surgery
DX: M25.562 Pain in left knee (principal)
CPT/HCPCS: 99024

== ENCOUNTER → 2024-06-01 09:09 | Outpatient (BNVA) | payer MEDICAID, SELFPAY | PROVIDERS: PCP Internal Medicine; Visit Provider Orthopaedic Surgery | DX: M25.562 Pain in left knee (principal) | CPT/HCPCS: 99212 ==

== ENCOUNTER 2024-07-05 14:01 | Outpatient (REF) | payer MEDICAID, SELFPAY ==
[2024-07-13 10:40] LABS: Benzoylecgonine 117
== END 2024-07-05 14:02 | disposition home or self-care (01) ==
LOC: HO.HHCLNP 14:01
PROVIDERS: Visit Provider Internal Medicine
DX: M54.41 Lumbago with sciatica, right side (principal); G89.29 Other chronic pain
CPT/HCPCS: 36415; 80353

== ENCOUNTER 2024-08-26 10:22 | Outpatient (AMB) | payer MEDICAID, SELFPAY ==
--- NOTE | 2024-08-26 10:28 | A.OFFVIS_ITS ---
Vital Signs 08/26/24 10:29 Height 5 ft 10 in Weight 235 lb BMI 33.7 Intake Visit Reasons: PO- LT knee 05/17/24 Intake Note: Jakub is a 44 year old male who presents with complaints of mild to moderate discomfort in his left knee after undergoing left knee arthroscopic surgery on 05/17/2024. He also reports intermittent weakness in his left leg. He states that his left knee does give out at times. He does not wish to go to formal physical therapy. Public Relations Specialist Required: Yes Public Relations Specialist Language: Service Desk Agent Services: Public Relations Specialist Present Public Relations Specialist Name: LISSA HuangAnnamaria/MARGARITA Allergies No Known Allergies Allergy (Verified 08/26/24 10:29) Medication List - Last Reconciled 08/26/24 by Danny Burden MD cyclobenzaprine 5 mg PO TID gabapentin 800 mg PO TID ibuprofen 800 mg PO TID lidocaine 4% (Salonpas (lidocaine)) 1 patch topical DAILY omeprazole 20 mg PO BID oxycodone 5 mg PO Q6H PRN PFSH Medical History Lumbago with sciatica Heartburn Pruritic dermatitis Chronic low back pain Surgical History Surgical history unknown Social History (System 07/08/24 @ 15:43 by Adam Cristina) Are you a primary direct care specialist to a significant other at home: No Do you presently have visiting nurse or other home services: No Patient Tobacco Use Status: Current everyday Tobacco user Cigarettes Per Day: 10 Physical Exam Vital Signs: BMI result Body Mass Index 33.7 Const Other: Well-nourished well-developed very friendly male awake alert and oriented x3 in no acute distress Extrem Other: Left knee examination shows that the surgical incisions are well healed, no erythema, mild crepitus with range of motion come off mild to moderate pain with range of motion Assessment & Plan Assessment & Plan (1) Osteoarthritis of left knee: Code(s): M17.12 - Unilateral primary osteoarthritis, left knee Category: Medical Plan Mr. Workman presents with continued discomfort in his left knee after undergoing left knee arthroscopic surgery on 05/17/2024 due to residual degenerative joint disease. He also has intermittent symptoms of instability. Thus, I did have him fitted with a knee brace. I do find that the knee braces a medical necessity to help prevent future falls. We will hold off on an injection at this time. He will contact me prior to his follow-up appointment in 2-3 months should any questions or concerns arise. I spent 22 minutes in reviewing the patient's records and imaging studies, seeing the patient and documenting in the medical record. Coding Level of Care Code Est Pt Level 3 (39291) Complex EM visit Add On G2211 Diagnoses Osteoarthritis of left knee M17.12
[2024-08-26 10:29] VITALS: BMI 33.7
--- OUTSIDE RECORDS SUMMARY | 2024-08-26 11:37 | XMS_ITS | Encounter Summary ---
Author Organization [employer] Address [address] [facility] 7 [place] [address] Care Team Providers Care Heat Sealing Machine Operator Name Role Phone Cony Chapman MD Primary Care Provide r Reason for Visit * Reason Comments Med Refill Encounter Details Date Type Department Care Team ([facility] Contact Info) Description 08/25/2024 Refill [facility] [address] [place], [place] [phone] Cony Chapman MD [address] [place] [address] Heartburn Social History Tobacco Use Types Packs/Day Years Used Date Smoking Tobacco: Every Day Cigarettes Passive Smoke Exposure: Current Smokeless Tobacco: Never Alcohol Use Standard Drinks/Week Comments Yes 0 (1 standard drink = 0.6 oz pur e alcohol) Depression Answer Date Recorded Patient Health Questionnaire-9 Score 11 08/03/2024 Patient Health Questionnaire-9 Score 11 08/03/2024 Last PHQ-9: Questionnaire Data Not on file 0 08/03/2024 Housing Stability Answer Date Recorded What is your housing situation today? I do not have housing (Staying with others, in a hotel, in a detention, living outside on the street, on a beach, in a car, or in a park 07/27/[address] you li ve. Do you have problems with any of the following? None of the above 07/27/2024 Food Insecurity Answer Date Recorded Within the past 12 months, y ou worried that your food would run out before you got money to buy more: Often true 07/27/2024 Within the past 12 months,th e food you bought just didn't last and you didn't have enough money to get more: Often true 11/2024 Transportation Answer Date Recorded In the past 12 months, has l ack of transportation kept you from medical appts, meetings, work or from getting things needed for daily living? No 02/26/2024 Utilities Answer Date Recorded In the past 12 months, has t he electric, gas, oil or water company threatened to shut off services in your home? No 02/26/2024 Depression Answer Date Recorded Patient Health Questionnaire-2 Score 4 08/03/2024 Internet Access Answer Date Recorded Internet Access Q1 Yes 02/26/2024 Internet Access Q2 Not on file 02/26/2024 Sex and Gender Information Value Date Recorded Sex Assigned at Male 02/18/2022 10:40 AM EDT Legal Sex Male 10:40 AM EDT Gender Identity Male 02/18/2022 10:40 AM EDT Sexual Orientation Straight 02/18/2022 10 :40 AM EDT documented as of this encounter Plan of Treatment Upcoming Encounters Date Type Department Care Team (Late st Contact Info) Description 09/03/2024 11:30 AM EDT Medication Management [address] [address] Forest Slade, PharmD [address] [place] [address] 10/25/2024 10:00 AM EDT Clinical Support [address] [address] Kaylee Maxwell, KATHY documented as of this encounter Visit Diagnoses Diagnosis Heartburn documented in this encounter Additional Health Concerns Assessment Noted Time PHQ-9 Depression Total Score: 11 025 9:54 AM EDT documented as of this encounter Care Teams Heat Sealing Machine Operator Relationship Specialty Start Date End Date Cony Chapman MD [address] [place] [address] PCP - General Family Medicine 02/01/22 documented as of this encounter
--- OUTSIDE RECORDS SUMMARY | 2024-08-26 11:37 | XMS_ITS | Encounter Summary ---
Author Organization [employer] Address [address] [place] [address] Care Team Providers Care Needle Loom Weaver Name Role Phone Cony Chapman MD Primary Care Provide r Encounter Details Date Type Department Care Team ([facility] st Contact Info) Description 12/08/2023 Orders Only [facility] [address] [place] [phone] Cony Chapman MD [address] [place] [address] Social History Tobacco Use Types Packs/Day Years Used Date Smoking Tobacco: Every Day Cigarettes Passive Smoke Exposure: Current Smokeless Tobacco: Never Alcohol Use Standard Drinks/Week Comments Yes 0 (1 standard drink = 0.6 oz pur e alcohol) Depression Answer Date Recorded Patient Health Questionnaire-9 Score 18 12/05/2023 Patient Health Questionnaire-9 Score 18 12/05/2023 Last PHQ-9: Questionnaire Data Not on file 0 12/05/2023 Housing Stability Answer Date Recorded What is your housing situation today? I have maria a smith 02/05/[address] you li ve. Do you have problems with any of the following? None of the above 02/05/2023 Food Insecurity Answer Date Recorded Within the past 12 months, y ou worried that your food would run out before you got money to buy more: Never True 02/05/2023 Within the past 12 months,th e food you bought just didn't last and you didn't have enough money to get more: Never True Transportation Answer Date Recorded In the past 12 months, has l ack of transportation kept you from medical appts, meetings, work or from getting things needed for daily living? Yes, it has kept me from medical appointments or getting medications. 01/26/2023 Utilities Answer Date Recorded In the past 12 months, has t he electric, gas, oil or water company threatened to shut off services in your home? No 02/05/2023 Depression Answer Date Recorded Patient Health Questionnaire-2 Score 5 12/05/2023 Sex and Gender Information Value Date Recorded Sex Assigned at Male 02/18/2022 10:40 AM EDT Legal Sex Male 10:40 AM EDT Gender Identity Male 02/18/2022 10:40 AM EDT Sexual Orientation Straight 02/18/2022 10 :40 AM EDT documented as of this encounter Plan of Treatment Upcoming Encounters Date Type Department Care Team (Late st Contact Info) Description 09/03/2024 11:30 AM EDT Medication Management [address] [address] Forest Slade, PharmD [address] [place] [id number] 10/25/2024 10:00 AM EDT Clinical Support [address] [address] Kaylee Maxwell, KATHY documented as of this encounter Visit Diagnoses Not on filedocumented in this encounter Additional Health Concerns Assessment Noted Time PHQ-9 Depression Total Score: 18 024 10:00 AM EDT documented as of this encounter Care Teams Needle Loom Weaver Relationship Specialty Start Date End Date Cony Chapman MD [address] [place] [phone] PCP - General Family Medicine 02/01/22 documented as of this encounter
--- OUTSIDE RECORDS SUMMARY | 2024-08-26 11:37 | XMS_ITS | Encounter Summary ---
Author Organization [employer] Address [address] [facility] [address] [place] [address] Care Team Providers Care Calenderer Name Role Phone Cony Chapman MD Primary Care Provide r Reason for Visit * Reason Comments Med Refill Encounter Details Date Type Department Care Team ([facility] Contact Info) Description 12/19/2023 Refill [facility] [address] [place], [place] [phone] Cony Chapman MD [address] [place] [address] Bilateral chronic knee pain Social History Tobacco Use Types Packs/Day Years [...] Description 09/03/2024 11:30 AM EDT Medication Management [facility] MED[facility]INE [address] [place] [phone] Forest Slade, PharmD [address] [place] [phone] 10/25/2024 10:00 AM EDT Clinical Support [address] [address] Kaylee Maxwell, RN documented as of this encounter Visit Diagnoses Diagnosis Bilateral chronic knee pain documented in this encounter Additional Health Concerns Assessment Noted Time PHQ-9 Depression Total Score: 18 024 10:00 AM EDT documented as of this encounter Care Teams Calenderer Relationship Specialty Start Date End Date Cony Chapman MD [address] [place] [phone] PCP - General Family Medicine 02/01/22 documented as of this encounter
--- OUTSIDE RECORDS SUMMARY | 2024-08-26 11:37 | XMS_ITS | Clinical Summary ---
Author Organization [employer] Address [address] [facility] [address] [place] [address] Care Team Providers Care Texturing Machine Fixer Name Role Phone Cony Chapman MD Primary Care Provide r Allergies No known active allergies Medications omeprazole OTC (PriLOSEC OTC) 20 MG EC tabletIndication s:Heartburn Take 1 tablet (20 mg) by mouth in the morning and 1 tablet (20 mg) at noon. Do not crush, chew, or split.. 180 tablet 024 Active lidocaine (Lidoderm) 5 % patchIndications :Lumbosacral radiculopathy Apply 1 patch topically Once per day. Remove & discard patch within 12 hours or as directed by MD. 30 patch 2 024 Active naloxone (Narcan) 4 mg/0.1 mL nasal sprayIndications :Bilateral chronic knee pain Administer 1 spray (4 mg) into affected nostril(s) if needed for opioid reversal. May repeat every 2-3 minutes if needed, alternating nostrils, until medical assistance becomes available. 2 each 3 024 2024 Active fluticasone (Flonase) 50 MCG/ACT nasal sprayIndications :Sore throat,Stuffy nose INSTILL 2 SPRAYS IN EACH NOSTRIL ONCE DAILY 48 g 024 Active oxyCODONE-acetam inophen (Percocet) 5-325 MG tabletIndication s:Bilateral chronic knee pain Take 1 tablet by mouth every 12 (twelve) hours if needed for severe pain for up to 28 days. 56 tablet 025 2024 Active nicotine (Nicoderm CQ) 14 MG/24HR patchIndications :Tobacco dependence Place 1 patch on the skin 1 (one) time each day at the same time. 21 patch 1 Active nicotine polacrilex (RA Mini Nicotine) 2 MG lozengeIndicatio ns:Tobacco dependence Dissolve 1 lozenge in the mouth every 1-2 hours as needed for cigarette cravings. 144 lozenge Active diphenhydrAMINE (BENADryl) 25 MG tabletIndication s:Allergic reaction, initial encounter Take 1 tablet (25 mg) by mouth every 6 (six) hours if needed for itching. 30 tablet 024 2024 Discontinued(M ed list cleanup (will not trigger notification to Pharmacy)) hydrocortisone 2.5 % creamIndications :Allergic reaction, initial encounter Apply topically 2 times daily. 28 g 024 2024 Discontinued(M ed list cleanup (will not trigger notification to Pharmacy)) Salonpas Pain Relieving 4 % patchIndications :Lumbosacral radiculopathy Apply 1 patch topically Once per day. 30 patch 2 024 2024 Discontinued(M ed list cleanup (will not trigger notification to Pharmacy)) nicotine (Nicoderm CQ) 14 MG/24HR patchIndications :Tobacco dependence Place 1 patch on the skin 1 (one) time each day at the same time. 30 patch 024 2024 Discontinued(R eorder (will not trigger notification to Pharmacy)) Active Problems Problem Noted Date Diagnosed Date Health care maintenance 08/03/2024 Osteoarthritis of left knee 08/03/2024 Acute meniscal tear of left knee 08/03/2024 Assessment & Plan (08/03/2024 11:46 AM EDT): I counseled him to follow-up with orthopedics and reschedule his appointment I will prescribe for him knee brace I will go up on his Percocet dose it will be 5/325 mg instead of every 12 hours is now going to be every 8 hours as needed, extensive counseling about how to properly take the medication and [employer] appointments was done, I let him know if during comes back abnormal I will have to discontinue this medication 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 06/19 Tobacco dependence 04/08/2024 Assessment & Plan (04/08/2024 2:13 PM EST): Counseling done Bilateral chronic knee pain 12/05/2023 Assessment & Plan (04/08/2024 2:12 PM EST): MRI reviewed with patient he will f/u with orthopedics C/w same percocet 5/325mg BID PRN Assessment & Plan (12/08/2023 5:09 PM EDT): Continue to follow with orthopedics I started him on minimum dose of oxycodone/acetaminophen 5/325mg Q 12hrs PRN patient referred for [employer] extensive discussion done about adherence to contract, in person appointment, pill count and random utox, I explained I will not go up on dose Chronic pain of both knees 10/06/2023 Assessment & Plan (10/06/2023 3:42 PM EDT): Continue to follow with orthopedics 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 10/06/2023 Assessment & Plan (10/06/2023 3:42 PM EDT): Follow up with orthopedics Allergic reaction 10/06/2023 Skin lesion of right arm 05/26/2023 Vertebrogenic low back pain 05/26/2023 Lumbosacral radiculopathy 05/26/2023 Assessment & Plan (08/03/2024 11:44 AM EDT): Continue to apply heat on affected area and continue to take same as needed pain meds Assessment & Plan (04/08/2024 2:13 PM EST): C/e percocet 5/325mg BID PRN Assessment & Plan (12/08/2023 5:07 PM EDT): I re-printed his pain management referral and information for him to f/u Assessment & Plan (10/06/2023 3:41 PM EDT): C/w gabapentin 800mg Q 8hrs C/w salonpas patches I prescribed for him today celecoxib 400mg BD I will call pain management office to ensure he will be follow up Assessment & Plan (05/26/2023 5:53 PM EST): Apply heat on affected area Gabapentin increase to 800mg TID, Baclofen discontinue instead robaxin Diclofenac 75mg BID with full stomach Neurosurgery referral I advise to contact backspin management PT referral Right knee pain 03/11/2023 Assessment & Plan (03/11/2023 5:59 AM EST): -tylenol prn for mild pain and Naproxen prn for mod pain -referred for XR today --if significant findings would refer to orthopedic otherwise would refer to PT -continue knee brace use that helps w symptoms Infestation by Sarcoptes scabiei ethan hominis Pruritic dermatitis 09/04/2022 Heartburn 09/04/2022 Assessment & Plan (10/31/2022 2:35 PM EDT): I advise patient to avoid NSAIDs, spicy and acid food, I advise to eat at the same time every day, I advise to elevate the head of the bed and take medications as prescribe C/w omeprazole Assessment & Plan (09/04/2022 10:14 AM EDT): I advise patient to avoid NSAIDs, spicy and acid food, I advise to eat at the same time every day, I advise to elevate the head of the bed and take medications as prescribe I will start him on omeprazole Chronic low back pain 08/09/2022 Assessment & Plan (03/11/2023 6:03 AM EST): Pt w acute on chronic lower back pain with right side sciatica . From exam slight decrease strength in right side possible from pain -Pt had lower back MRI done in 08/2022 w PM -I called today PM' office Dr Black and was explained BVN ablation/intracept will not be able to be done . I request MRI result to be faxed to clinic -advised pt to use warm compresses in area of pain -tylenol prn for mild pain and naproxen BID for mod pain -continue Lidoderm patches use -advised pt to call his PM to schedule f up apt -pt was referred already to PT by his PM-pd to schedule apt -may need NS eval if symptoms persist and relevant findings on MRI report -pd to get record -alarm signs and symptoms discussed Assessment & Plan (10/31/2022 2:43 PM EDT): I went up on gabapentin to 400mg TID and I change muscle relaxer to baclofen 20mg TID, patient is aware of side effect, he was ask not to drive while taking this medications Assessment & Plan (09/04/2022 10:13 AM EDT): MRI order did not go through I will order again I advise to apply heat on affected area Patient will start PT on 09/06/22 I start him on flexeril and gabapentin Documents will be drop off at medical records RTC for transfer appointment next available one Encounters Date Type Department Care Team Description 08/25/2024 Refill [facility] [address] [place], [place] [phone] Cony Chapman MD Heartburn 08/11/2024 Telephone [facility] [address] [place] [phone] Cony Chapman MD 08/05/2024 Telephone [facility] [address] [place] [phone] Cony Chapman MD Durable Medical Equipment 08/03/2024 10:00 AM EDT Office Visit [address] [phone] Cony Chapman MD Chronic pain of both knees (Primary Dx); Lumbosacral radiculopathy; Health care maintenance; Tear of lateral meniscus of left knee, current, unspecified tear type, sequela; Acute meniscal tear of left knee, sequela 08/03/2024 Travel 07/28/2024 Telephone [facility] [address] [place] [phone] Cony Chapman MD Med Refill 07/27/[address] [address] Cony Chapman MD Chart Prep 07/27/2024 Patient Outreach [address] [phone] Cony Chapman MD Care Coordination (CH[facility] outreach for SDOH housing search-LVM ) 07/27/2024 Patient Outreach [facility] [address] [place] [address] Cony Chapman MD Pre-visit Planning (SDOH positive, Tobacco screening positive) 07/26/2024 1:30 PM EDT Clinical Support [address] [address] Prudence Dennis RN 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 07/26/2024 Refill [facility] [address] [place] [phone] Prudence Dennis RN Bilateral chronic knee pain 07/26/2024 Travel 07/05/2024 9:00 AM EDT Clinical Support [address] [address] Kaylee Maxwell RN Chronic bilateral low back pain with right-sided sciatica (Primary Dx); 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 07/05/2024 Refill [facility] [address] [place] [phone] Kaylee Maxwell, KATHY Bilateral chronic knee pain 07/05/2024 Travel 07/02/2024 Population Health Risk Score Community Care [facility] ([facility] Department [address] [place] [phone] Provider, Population Health Generic 06/28/2024 Telephone [facility] [address] [place] [phone] Cony Chapman MD Appointment Request 06/28/2024 Refill [facility] [address] [place] [phone] Cony Chapman MD Bilateral chronic knee pain 06/25/2024 Telephone [facility] [address] [place] [address] Cony Chapman MD Cologuard result 06/17/2024 Telephone [facility] [address] [place] [address] Cony Chapman MD Nurse Triage 05/31/2024 Refill [facility] [address] [place] [address] Cony Chapman MD Bilateral chronic knee pain from Last 3 Months Immunizations Name Administration Dates Next Due Influenza, seasonal, injectable, preservative fr ee 04/08/2024 Pneumococcal Conjugate PCV 20 04/08/2024 Family History Medical History Relation Name Comments Diabetes Mother Relation Name Status Comments Mother Social History Tobacco Use Types Packs/Day Years Used Date Smoking Tobacco: Every Day Cigarettes Passive Smoke Exposure: Current Smokeless Tobacco: Never Tobacco Cessation:Ready to Q uit: Not Asked; Counseling Given: Not Answered Alcohol Use Standard Drinks/Week Comments Yes 0 [...] with others, in a hotel, in a senior living, living outside on the street, on a [...] Orientation Straight 02/18/2022 10 :40 AM EDT Last Filed Vital Signs Vital Sign Reading Time Taken Comments Blood Pressure 128/84 08/03/2024 9:48 AM EDT Pulse 80 08/03/2024 9:48 AM EDT Temperature 36.1 ??C (97 ??F) 08/03/2024 9:48 AM EDT Respiratory Rate 20 08/03/2024 9:48 AM EDT Oxygen Saturation 96% 12/05/2023 9:52 AM EDT Inhaled Oxygen Concentration - - Weight 111 kg (244 lb 9.6 oz) 08/03/2024 9:48 AM EDT Height 180.3 cm (5' 11 ) 08/03/2024 9:48 AM EDT Body Mass Index 34.11 08/03/2024 9:48 AM EDT Plan of Treatment Upcoming Encounters Date Type Department Care Team (Late st Contact Info) Description 09/03/2024 11:30 AM EDT Medication Management [facility] [address] [place] [phone] Forest Slade, PharmD [address] [place] [address] 10/25/2024 10:00 AM EDT Clinical Support [facility] [address] [place] [phone] Kaylee Maxwell, RN Health Maintenance Due Date Last Done Comments CT Colonography 1978 Colonoscopy 1978 FIT 1978 FOBT 1978 Sigmoidoscopy 1978 Alcohol/Substance Use Screening 1990 Family Planning (PISQ) 1993 DTaP/Tdap/Td Vaccines (1 - Tdap) 1997 Hepatitis B Vaccines (1 of 3 - 19+ 3-dose series) 1997 COVID-19 Vaccine (1 - 2023-2 5 season) 2023 SDOH Screening 07/27/2025 07/27/2024 Depression Screening 08/03/2025 08/03/2024, 08/03/2024 Tobacco Screening 08/03/2025 08/03/2024 Lipid Panel 02/04/2027 02/04/2022 Colorectal Cancer Screening 06/18/2027 FIT DNA/Cologuard 06/18/2027 06/18/2024 Zoster Vaccines (1 of 2) 2028 RSV Patients and Patients Aged 60 years or older (1 - 1-dose 75+ series) 2053 HIV Screening Completed 02/04/2022 Hepatitis C Screening Completed 02/04/2022 Influenza Vaccine Completed 04/08/2024 Pneumococcal Vaccine: Pediatrics (0 to 5 Years) and At-Risk Patients (6 to 49) Years) Completed 04/08/2024 HIB Vaccines Aged Out No longer eligi ble based on patient's age to complete this topic HPV Vaccines Aged Out No longer eligi ble based on patient's age to complete this topic Hepatitis A Vaccines Aged Out No long er eligible based on patient's age to complete this topic IPV Vaccines Aged Out No longer eligi ble based on patient's age to complete this topic Meningococcal Vaccine Aged Out No melecio xuan eligible based on patient's age to complete this topic RSV under 20 months Aged Out No longe r eligible based on patient's age to complete this topic Rotavirus Vaccines Aged Out No longer eligible based on patient's age to complete this topic Procedures Procedure Name Priority Date/Time Associated Diagnosis Comments POCT HILARIO-14 URINE DRUG SCREEN Routine 07/26/2024 1:37 PM EDT 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 COLON CANCER SCREEN Routine 06/18/2024 7:45 AM EST Screening for colon cancer ZZZ HISTORICAL HEPATITIS C AB W/REFL TO HCV RNA, QN, PCR Routine 02/04/2022 8:41 AM EDT HIV 1/2 ANTIGEN/ANTIBODY, FOURTH GENERATION W/RFL Routine 02/04/2022 8:41 AM EDT LIPID PANEL, STANDARD Routine 02/04/2022 8:41 AM EDT from Last 3 Months or Most Recently Relevant to Health Maintenance Results * POCT HILARIO-14 Urine Drug Screen (07/26/2024 1:37 PM EDT) Only the most recent of2 resultswithin the time period is included. Urine Urine specimen obtained by clean catch procedure / Unknown 07/26/2024 1:37 PM EDT Prudence Ying RN - 07/26/2024 1:37 PM EDT POS for oxy NEG for all other substances LOT: [id number] EXP:12/08/25 Michelle Elizondo MD POINT OF CARE TEST ENTER /EDIT ORDERABLES Final Result * Drug Monitoring, Cocaine Metabolite, Quantitative, Urine (07/05/2024 9:00 AM EDT) Benzoylecgonine [address] [facility] Comment:REFERENCE RANGE: <10 0 ng/mL Cocaine Comments SEE NOTE [facility] Comment:This drug testing is for medical treatment only. Analysiswas performed as non-forensic testing and these resultsshould be used only by healthcare providers to renderdiagnosis or treatment, or to monitor progress of medicalconditions.Cocaine Notes:Benzoylecgonine detected is consistent with the use of thedrug Cocaine.LDT Notes:Confirmation tests were developed and their analyticalperformance characteristics have been determined by [employer]. It has not been cleared or approved by the FDA.This assay has been validated pursuant to the CLIAregulations and is used for clinical purposes.Healthcare Providers needing Interpretation assistance,please contact us at [phone] ( ) M-F,8am to 10pm ESTTHIS TEST PERFORMED AT:[facility] [place] [phone] DIRECTOR: PEGGY PENG MD Urine (Urine, Random) 07/05/2024 9:00 AM EDT 07/05/2024 2:08 PM EDT Cony Arango MD LAB URINE ORDERABLES Final Result Performing Organization Address City/State/[facility] Co de Phone Number [facility] [address] [place] [phone] * Cologuard?? colon cancer screening (06/18/2024 7:45 AM EST) Cologuard Result Negative Negative 06/24/19 10:54 PM EST [facility] (CLIA #:[id number]) Comment: NEGATIVE TEST RESULT. A negative Cologuard result indicates a low likelihood that a colorectal cancer (CRC) or advanced adenoma (adenomatous polyps with more advanced pre-malignant features) ??is present. The chance that a person with a negative Cologuard test has a colorectal cancer is less than 1 in 1500 (negative predictive value >99.9%) or has an ??advanced adenoma is less than ??5.3% (negative predictive value 94.7%). These data are based on a prospective cross-sectional study of 10,000 individuals at average risk for colorectal cancer who were screened with both Cologuard and colonoscopy. (Vito Adam al, N Engl J Med 2014;370(14):1286- 1297) The normal value (reference range) for this assay is negative. COLOGUARD RE-SCREENING RECOMMENDATION: Periodic colorectal cancer screening is an important part of preventive healthcare for asymptomatic individuals at average risk for colorectal cancer. ??Following a negative Cologuard result, the [place] Cancer Society and U.S. Multi-Society Task Force screening guidelines recommend a Cologuard re-screening interval of 3 years. References: [place] [employer] Society Guideline for Colorectal Cancer Screening: https://www.cancer.org/cancer/vrolv-zjhpag-qvmcei/vdxfzfjlz-revknmrul-jwrcuqd/ac s-rec ommendations.html.; Mookie DK, Christa CR, Shayla SchaferK, Colorectal Cancer Screening: Recommendations for Physicians and Patients from the U.S. Multi-Society Task Force on Colorectal Cancer Screening , Am J Gastroenterology 2017; 112:7190-3641. TEST DESCRIPTION: Composite algorithmic analysis of stool DNA-biomarkers with hemoglobin immunoassay. ?? Quantitative values of individual biomarkers are not reportable and are not associated with individual biomarker result reference ranges. Cologuard is intended for colorectal cancer screening of adults of either sex, 45 years or older, who are at average-risk for colorectal cancer (CRC). Cologuard has been approved for use by the U.S. FDA. The performance of Cologuard was established in a cross sectional study of average-risk adults aged 50-84. Cologuard performance in patients ages 45 to 49 years was estimated by sub-group analysis of near-age groups. Colonoscopies performed for a positive result may find as the most clinically significant lesion: colorectal cancer [4.0%], advanced adenoma (including sessile serrated polyps greater than or equal to 1cm diameter) [20%] or non- advanced adenoma [31%]; or no colorectal neoplasia [45%]. These estimates are derived from a prospective cross-sectional screening study of 10,000 individuals at average risk for colorectal cancer who were screened with both Cologuard and colonoscopy. (Vito Adam al, N Engl J Med 2014;370(14):6215-4423.) Cologuard may produce a false negative or false positive result (no colorectal cancer or precancerous polyp present at colonoscopy follow up). A negative Cologuard test result does not guarantee the absence of CRC or advanced adenoma (pre-cancer). The current Cologuard screening interval is every 3 years. ([place] Cancer Society and U.S. Multi-Society Task Force). Cologuard performance data in a 10,000 patient pivotal study using colonoscopy as the reference method can be accessed at the following location: www.[employer]/results. Additional description of the Cologuard test process, warnings and precautions can be found at www.colMimetogen Pharmaceuticalsrd.com. Stool specimen (specimen) 06/18/2024 7:45 AM EST 06/19/2024 12:48 PM EST us Cony Arango MD LAB MOLECULAR DIAGNOS TICS ORDERABLES Final Result Performing Organization Address City/[facility]/ZIP Co de Phone Number [facility] (CLIA #:[id number]) [place] [address], [place] [phone] * HEPATITIS C AB W/REFL TO HCV RNA, QN, PCR (02/04/2022 8:41 AM EDT) HEPATITIS C ANTIBODY NON-REACTI VE NON-REACT PATRICE [facility]VERT[facility]GAC[facility] LAB[facility] INDEX 0.12 <1.00 [facility] LAB[facility] Comment: ?? HCV antibody was non-reactive. There is no laboratory ?? evidence of HCV infection. ?? In most cases, no further action is required. However, if recent HCV exposure is suspected, a test for HCV RNA (test code 64176) is suggested. ?? For additional information please refer to http://education.[employer]/faq/UCK09l5 (This link is being provided for informational/ educational purposes only.) ?? 02/04/2022 8:41 AM EDT us Cony Arango MD HISTORICAL/NON ORDERA BLE LABS Final Result Performing Organization Address [facility] Co de Phone Number CONVERTED LEGACY LABS * HIV 1/2 ANTIGEN/ANTIBODY,FOURTH GENERATION W/RFL (02/04/2022 8:41 AM EDT) HIV-1/2 ANTIGEN AND ANTIBODIES, 4TH GENERATION W/ REFLEX NON-REACT PATRICE NON-REACT PATRICE [facility]VERT[facility]GACY LAB[facility] Comment: HIV-1 antigen and HIV-1/HIV-2 antibodies were not detected. There is no laboratory evidence of HIV infection. ?? PLEASE NOTE: This information has been disclosed to you from records whose confidentiality may be protected by state law. ??If your state requires such protection, then the state law prohibits you from making any further disclosure of the information without the specific written consent of the person to whom it pertains, or as otherwise permitted by law. A general authorization for the release of medical or other information is NOT sufficient for this purpose. ? For additional information please refer to http://[employer].Ubiquisys/faq/YAI070 (This link is being provided for informational/ educational purposes only.) ? The performance of this assay has not been clinically validated in patients less than 2 years old. ?? 02/04/2022 8:41 AM EDT Cony Arango MD LAB BLOOD ORDERABLES Final Result CONVERTED [facility]GACY LABS * (ABNORMAL) LIPID PANEL, STANDARD (02/04/2022 8:41 AM EDT) Chol/HDLC Ratio 3.8 <5.0 (calc) [facility] Cholesterol, Total 150 <200 mg/dL [facility] HDL Cholesterol 39(L) > OR = 40 mg/dL [facility] LDL Cholesterol 88 mg/dL (calc) CONVERT[facility]GAC[facility] LAB[facility] Comment: Reference range: <100 ?? Desirable range <100 mg/dL for primary prevention; ?? <70 mg/dL for patients with CHD or diabetic patients ?? with > or = 2 CHD risk factors. ?? LDL-C is now calculated using the Jody ?? calculation, which is a validated novel method providing ?? better accuracy than the Friedewald equation in the ?? estimation of LDL-C. ?? Almas PRABHAKAR et al. KEVYN. 2013;310(19): 7941-7869 ?? (http://education.Vrvana/faq/GGD218) Non-HDL Cholesterol 111 <130 mg/dL (calc) CON[facility]GAC[facility] LAB[facility] Comment: For patients with diabetes plus 1 major ASCVD risk ?? factor, treating to a non-HDL-C goal of <100 mg/dL ?? (LDL-C of <70 mg/dL) is considered a therapeutic ?? option. Triglycerides 136 <150 mg/dL CONVE RTED LEGACY LABS 02/04/2022 8:41 AM EDT Cony Arango MD LAB BLOOD ORDERABLES Final Result CONVERTED LEGACY LABS from Last 3 Months or Most Recently Relevant to Health Maintenance Insurance C3 HSN PARTIAL Care Teams Texturing Machine Fixer Relationship Specialty Start Date End Date Cony Chapman MD [address] [place] [phone] PCP - General Family Medicine 02/01/22
--- OUTSIDE RECORDS SUMMARY | 2024-08-26 11:37 | XMS_ITS | Encounter Summary ---
Author Organization [employer] Address [address] [facility] 7t [place] [address] Care Team Providers Care Electrostatic Painter Name Role Phone Cony Chapman MD Primary Care Provide r Reason for Visit * Reason Comments Med Refill Encounter Details Date Type Department Care Team ([facility] Contact Info) Description 12/30/2023 Refill [facility] [address] [place], [place] [phone] Cony Chapman MD [address] [place] [address] Bilateral chronic knee pain Social History Tobacco [...] Description 09/03/2024 11:30 AM EDT Medication Management [facility] [address] [place] [address] Forest Slaed, PharmD [address] [place] [address] 10/25/2024 10:00 AM EDT Clinical Support [address] [address] Kaylee Maxwell, RN documented as of this encounter Visit Diagnoses Diagnosis Bilateral chronic knee pain documented in this encounter Additional Health Concerns Assessment Noted Time PHQ-9 Depression Total Score: 18 024 10:00 AM EDT documented as of this encounter Care Teams Electrostatic Painter Relationship Specialty Start Date End Date Cony Chapman MD [address] [place] [phone] PCP - General Family Medicine 02/01/22 documented as of this encounter
== END 2024-08-26 10:44 | disposition home or self-care (01) ==
LOC: HO.HOS 10:22
PROVIDERS: PCP Internal Medicine; Visit Provider Orthopaedic Surgery
DX: M17.12 Unilateral primary osteoarthritis, left knee (principal)
CPT/HCPCS: 99213

== ENCOUNTER → 2024-08-26 10:22 | Outpatient (BNVA) | payer MEDICAID, SELFPAY | PROVIDERS: PCP Internal Medicine; Visit Provider Orthopaedic Surgery | DX: M17.12 Unilateral primary osteoarthritis, left knee (principal) | CPT/HCPCS: 99212 ==

== ENCOUNTER 2024-11-16 13:04 | Outpatient (AMB) | payer MEDICAID, SELFPAY ==
[2024-11-16 13:08] VITALS: BMI 33.7
--- NOTE | 2024-11-16 13:08 | A.OFFVIS_ITS ---
Vital Signs 11/16/24 13:08 Height 5 ft 10 in Weight 235 lb BMI 33.7 Intake Visit Reasons: OV- LT knee 05/17/24 DR madrid/u Intake Note: Jakub is a 44 year old male who presents for follow up of left knee after undergoing left knee arthroscopic surgery on 05/17/2024. At his last visit on 08/26/24 he was fitted for a knee brace due to instability. The patient has had injections in the past which seemed to aggravate his pain. At today's visit he states that the pain is the same. Patient added that the brace is not helping like it did before. Assistant Director Of Residence Life Required: Yes Assistant Director Of Residence Life Services: Assistant Director Of Residence Life Present Assistant Director Of Residence Life Name: Juan Dick- [id number] Allergies No Known Allergies Allergy (Verified 11/16/24 13:15) Medication List - Last Reconciled 11/16/24 by Danny Burden MD cyclobenzaprine 5 mg PO TID gabapentin 800 mg PO TID ibuprofen 800 mg PO TID lidocaine 4% (Salonpas (lidocaine)) 1 patch topical DAILY omeprazole 20 mg PO BID [facility] Medical History Lumbago with sciatica Heartburn Pruritic dermatitis Chronic low back pain Surgical History Surgical history unknown Social History (System 07/08/24 @ 15:43 by Adam Cristina) Are you a primary animal care supervisor to a significant other at home: No Do you presently have visiting nurse or other home services: No Patient Tobacco Use Status: Current everyday Tobacco user Cigarettes Per Day: 10 Physical Exam Vital Signs: BMI result Body Mass Index 33.7 Const Other: Well-nourished well-developed very friendly male awake alert and oriented x3 in no acute distress Extrem Other: Left knee examination shows that the surgical incisions are well healed, no erythema, mild crepitus with range of motion, no instability Assessment & Plan Assessment & Plan (1) Osteoarthritis of left knee: Code(s): M17.12 - Unilateral primary osteoarthritis, left knee Category: Medical Plan Mr. Workman presents with left knee pain due to early degenerative joint disease. I had a lengthy discussion with the patient regarding the treatment options. Because the patient's pain seemed to have gotten worse after prior injections, we will hold off on an injection today. The patient may be a candidate for a nerve stimulation procedure. Thus, I will refer him to Dr. Black from our pain management department. He will follow-up as instructed. Feel free to call me at any time should questions regarding his orthopedic management arise. I spent 20 minutes in reviewing the patient's records and imaging studies, seeing the patient and documenting in the medical record. Orders: Referrals Pain Management Referral M17.12 - Unilateral primary osteoarthritis, left knee Coding Level of Care Code Est Pt Level 3 (11134) Complex EM visit Add On G2211 Diagnoses Osteoarthritis of left knee M17.12
--- OUTSIDE RECORDS SUMMARY | 2024-11-16 13:50 | XMS_ITS | Clinical Summary ---
Author Organization [employer] Address [address] [place] [address] 7 [place] [address] Care Team Providers Care Allergist/Pediatric Pulmonologist Name Role Phone Cony Chapman MD Primary Care Provide r Forest Slade PharmD Unavailable [phone] Allergies No known active allergies Medications lidocaine (Lidoderm) 5 % patchIndications: Lumbosacral radiculopathy Apply 1 patch topically Once per day. Remove & discard patch within 12 hours or as directed by MD. 30 patch 2 4 Active naloxone (Narcan) 4 mg/0.1 mL nasal sprayIndications: Bilateral chronic knee pain Administer 1 spray (4 mg) into affected nostril(s) if needed for opioid reversal. May repeat every 2-3 minutes if needed, alternating nostrils, until medical assistance becomes available. 2 each 3 4 025 Active fluticasone (Flonase) 50 MCG/ACT nasal sprayIndications: Sore throat,Stuffy nose INSTILL 2 SPRAYS IN EACH NOSTRIL ONCE DAILY 48 g 4 Active nicotine (Nicoderm CQ) 14 MG/24HR patchIndications: Tobacco dependence Place 1 patch on the skin 1 (one) time each day at the same time. 21 patch 1 5 Active nicotine polacrilex (RA Mini Nicotine) 2 MG lozengeIndication s:Tobacco dependence Dissolve 1 lozenge in the mouth every 1-2 hours as needed for cigarette cravings. 144 lozenge 5 Active omeprazole (PriLOSEC) [address] capsuleIndication s:Heartburn TAKE 1 CAPSULE BY MOUTH TWICE DAILY IN THE MORNING AND AT NOON DO NOT BREAK, CRUSH, DISSOLVE OR CHEW 180 capsule 5 Active oxyCODONE-acetami nophen (Percocet) 5-325 MG tabletIndications :Bilateral chronic knee pain Take 1 tablet by mouth every 8 (eight) hours if needed for severe pain. 84 tablet 5 Active Active Problems Problem Noted Date Diagnosed Date [...] how to properly take the medication and PROCESS CONSULTANT appointments was done, I let him know if during comes back abnormal I will have to discontinue this medication penitentiary (current) use of opiate analgesic 06/19 Tobacco [...] 5/325mg Q 12hrs PRN patient referred for PROCESS CONSULTANT extensive discussion done about adherence to contract, [...] Encounters Date Type Department Care Team Description 10/28/2024 Telephone [facility] [place] [address] Cony Chapman MD 10/14/2024 Telephone [facility] [place] [address] Cony Chapman MD 09/28/[address] [address] Cony Chapman MD 09/15/2024 2:30 PM EDT Clinical Support [facility] [place] [address] Kaylee Maxwell, KATHY terminologist (current) use of opiate analgesic (Primary Dx) 09/15/[address] [address] Kaylee Maxwell, KATHY Does not want PROCESS CONSULTANT appts 09/15/2024 Travel 09/09/2024 [address]phone [address] [place] [address] Kaylee Maxwell RN Schedule PROCESS CONSULTANT appt, notify Pos ETHAN [facility] 09/08/2024 Orders Only [address] [address] Cony Chapman MD Chronic pain of both knees (Primary Dx); Lumbosacral radiculopathy 09/07/[address] [address] Cony Chapman MD telephone call 09/07/[address] [phone] Cony Chapman MD telephone call 09/03/2024 11:30 AM EDT Telemedicine [address] [address] Forest Slade, PharmD Tobacco dependence (Primary Dx) 09/03/2024 Travel 08/26/[address] [address] Michelle Elizondo MD Bilateral chronic knee pain 08/26/2024 Refill [facility] [address] [place] [address] Cony Chapman MD Bilateral chronic knee pain 08/25/2024 Refill [facility] [address] [place] [address] Cony Chapman MD Heartburn from Last 3 Months Immunizations Immunization Administration Dates Next Due Influenza, seasonal, injectable, preservative fr ee 04/08/2024 Pneumococcal Conjugate PCV 20 04/08/2024 Family History Medical History Relation Name Comments Diabetes Mother Relation Name Status Comments Mother Social History Tobacco Use Types Packs/Day Years Used Date Smoking Tobacco: Every Day Cigarettes 2 34.6 Started: 1990 Passive Smoke Exposure: Current Smokeless Tobacco: Never [...] with others, in a hotel, in a chcf, living outside on the street, on a [...] 80 08/03/2024 9:48 AM EDT Temperature 36.1 C (97 F) 08/03/2024 9:48 AM EDT Respiratory Rate 20 08/03/2024 9:48 AM EDT Oxygen Saturation 96% 12/05/2023 9:52 AM EDT Inhaled Oxygen Concentration - - Weight 111 kg (244 lb 9.6 oz) 08/03/2024 9:48 AM EDT Height 180.3 cm (5' 11 ) 08/03/2024 9:48 AM EDT Body Mass Index 34.11 08/03/2024 9:48 AM EDT Plan of Treatment Health Maintenance Due Date Last Done Comments CT Colonography 1978 Colonoscopy 1978 FIT 1978 Sigmoidoscopy 1978 Disability Screening 1978 Alcohol/Substance Use Screening 1990 Family Planning (PISQ) 1993 DTaP/Tdap/Td Vaccines (1 - Tdap) 1997 Hepatitis B Vaccines (1 of 3 - 19+ 3-dose series) 1997 COVID-19 Vaccine ( - 2023-2 5 season) 2023 Influenza Vaccine (#1) 2024 04/08/2024 Depression Monitoring 02/02/2025 08/03/2024 , 08/03/2024 FOBT 06/18/2025 06/18/2024 SDOH Screening 07/27/2025 07/27/2024 Tobacco Screening 09/03/2025 09/03/2024 Lipid Panel 02/04/2027 02/04/2022 Colorectal Cancer Screening 06/18/2027 FIT DNA/Cologuard 06/18/2027 06/18/2024 Zoster Vaccines (1 of 2) 2028 RSV Patients and Patients Aged 60 years or older (1 - 1-dose 75+ series) 2053 HIV Screening Completed 02/04/2022 Hepatitis C Screening Completed 02/04/2022 Pneumococcal Vaccine: Pediatrics (0 to 5 Years) and At-Risk Patients (6 to 49) Years Completed 04/08/2024 HIB Vaccines Aged Out No [...] patient's age to complete this topic Meningococcal B Vaccine Aged Out No l onger eligible based on patient's age to complete [...] Procedure Name Priority Date/Time Associated Diagnosis Comments LAB COLOGUARD COLON CANCER SCREEN Routine 06/18/2024 7:45 AM EST Screening for colon cancer ZZZ HISTORICAL HEPATITIS C AB W/REFL TO HCV RNA, QN, PCR Routine 02/04/2022 8:41 AM EDT HIV 1/2 ANTIGEN/ANTIBODY, FOURTH GENERATION W/RFL Routine 02/04/2022 8:41 AM EDT LIPID PANEL, STANDARD Routine 02/04/2022 8:41 AM EDT from Last 3 Months or Most Recently Relevant to Health Maintenance Results * Cologuard?? colon cancer screening (06/18/2024 7:45 AM EST) Cologuard Result Negative Negative 06/24/19 10:54 PM EST [employer] (CLIA #:[id number]) Comment: NEGATIVE TEST RESULT. A negative Cologuard result indicates a low likelihood that a colorectal cancer (CRC) or advanced adenoma (adenomatous polyps with more advanced pre-malignant features) is present. The chance that a person with a negative Cologuard test has a colorectal cancer is less than 1 in 1500 (negative predictive value >99.9%) or has an advanced adenoma is less than 5.3% (negative predictive value 94.7%). These data are based on a prospective cross-sectional study of 10,000 individuals at average risk for colorectal cancer who were screened with both Cologuard and colonoscopy. (Vito Allen et al, N Engl J Med 2014;370(14):7001-1313) The normal value (reference range) for this assay is negative. COLOGUARD RE-SCREENING RECOMMENDATION: Periodic colorectal cancer screening is an important part of preventive healthcare for asymptomatic individuals at average risk for colorectal cancer. Following a negative Cologuard result, the [place] [employer] Society and U.S. Multi-Society Task Force screening guidelines recommend a Cologuard re-screening interval of 3 years. References: [place] [employer] Guideline for Colorectal Cancer Screening: https://www.cancer.org/cancer/dsofb-swoami-tjhtfi/jkfyqyoli-ltdadvxyp-qissrst/ac s-rec ommendations.html.; Mookie DK, Christa PRETTY, Shayla SchaferK, Colorectal Cancer Screening: Recommendations for Physicians and Patients from the U.S. Multi-Society Task Force on Colorectal Cancer Screening , Am J Gastroenterology 2017; 112:1889-5712. TEST DESCRIPTION: Composite algorithmic analysis of stool DNA-biomarkers with hemoglobin immunoassay. Quantitative values of individual biomarkers are not [...] (Vito Adam al, N Engl J Med 2014;370(14):9839-2055.) Cologuard may produce a false negative or false positive result (no colorectal cancer or precancerous polyp present at colonoscopy follow up). A negative Cologuard test result does not guarantee the absence of CRC or advanced adenoma (pre-cancer). The current Cologuard screening interval is every 3 years. ([place] [employer] Society and U.S. Multi-Society Task Force). Cologuard performance data in a 10,000 patient pivotal study using colonoscopy as the reference method can be accessed at the following location: www.[employer]/results. Additional description of the Cologuard test process, warnings and precautions can be found at www.[employer]. Stool specimen (specimen) 06/18/2024 7:45 AM EST 06/19/2024 12:48 PM EST Cony Arango MD LAB MOLECULAR DIAGNOS TICS ORDERABLES Final Result [employer] (CLIA #:[id number]) [place] [address], * HEPATITIS C AB W/REFL TO HCV RNA, QN, PCR (02/04/2022 8:41 AM EDT) HEPATITIS C ANTIBODY NON-REACTI VE NON-REACT PATRICE CONVERTED LEGACY LABS INDEX 0.12 <1.00 CONVERTED LEGACY LABS Comment: HCV antibody was non-reactive. There is no laboratory evidence of HCV infection. In most cases, no further action is required. However, if recent HCV exposure is suspected, a test for HCV RNA (test code 66369) is suggested. For additional information please refer to http://education.[employer]/faq/SFP25n3 (This link is being provided for informational/ educational purposes only.) 02/04/2022 8:41 AM EDT Cony Arango MD HISTORICAL/NON ORDERA BLE LABS Final Result Performing Organization Address [facility] Co de Phone Number CONVERTED LEGACY LABS * HIV 1/2 ANTIGEN/ANTIBODY,FOURTH GENERATION W/RFL (02/04/2022 8:41 AM EDT) Pathologist [facility] HIV-1/2 ANTIGEN AND ANTIBODIES, 4TH GENERATION W/ REFLEX NON-REACT PATRICE NON-REACT PATRICE CONVERTED LEGACY LABS Comment: HIV-1 antigen and HIV-1/HIV-2 antibodies were not detected. There is no laboratory evidence of HIV infection. PLEASE NOTE: This information has been disclosed to you from records whose confidentiality may be protected by state law. If your state requires such protection, then the state law prohibits you from making any further disclosure of the information without the specific written consent of the person to whom it pertains, or as otherwise permitted by law. A general authorization for the release of medical or other information is NOT sufficient for this purpose. For additional information please refer to http://education.[employer]/faq/YOL451 (This link is being provided for informational/ educational purposes only.) The performance of this assay has not been clinically validated in patients less than 2 years old. 02/04/2022 8:41 AM EDT Cony Arango MD LAB BLOOD ORDERABLES Final Result Performing Organization Address [facility] de Phone Number CONVERTED LEGACY LABS * (ABNORMAL) LIPID PANEL, STANDARD (02/04/2022 8:41 AM EDT) Chol/HDLC Ratio 3.8 <5.0 (calc) CONVERTED LEGACY LABS Cholesterol, Total 150 <200 mg/dL CONVERTED LEGACY LABS HDL Cholesterol 39(L) > OR = 40 mg/dL CONVERTED LEGACY LABS LDL Cholesterol 88 mg/dL (calc) CONVERTED LEGACY LABS Comment: Reference range: <100 Desirable range <100 mg/dL for primary prevention; <70 mg/dL for patients with CHD or diabetic patients with > or = 2 CHD risk factors. LDL-C is now calculated using the Jody calculation, which is a validated novel method providing better accuracy than the Friedewald equation in the estimation of LDL-C. Almas PRABHAKAR et al. KEVYN. 2013;310(19): 4143-3907 (http://education.[employer]/faq/EOC006) Non-HDL Cholesterol 111 <130 mg/dL (calc) CONVERTED LEGACY LABS Comment: For patients with diabetes plus 1 major ASCVD risk factor, treating to a non-HDL-C goal of <100 mg/dL (LDL-C of <70 mg/dL) is considered a therapeutic option. Triglycerides 136 <150 mg/dL CONVE RTED LEGACY LABS 02/04/2022 8:41 AM EDT Cony Arango MD LAB BLOOD ORDERABLES Final Result CONVERTED LEGACY LABS from Last 3 Months or Most Recently Relevant to Health Maintenance Insurance [facility] C3 HSN PARTIAL Care Teams Allergist/Pediatric Pulmonologist Relationship Specialty Start Date End Date Cony Chapman MD [address] [place] [id number] PCP - General Family Medicine 02/01/22 Forest Slade, CrissD [address] [place] [address] Pharmacist Internal Medicine 09/03/24
== END 2024-11-16 13:30 | disposition home or self-care (01) ==
LOC: HO.HOS 13:05
PROVIDERS: PCP Internal Medicine; Visit Provider Orthopaedic Surgery
DX: M17.12 Unilateral primary osteoarthritis, left knee (principal)
CPT/HCPCS: 99213

== ENCOUNTER → 2024-11-16 13:04 | Outpatient (BNVA) | payer MEDICAID, SELFPAY | PROVIDERS: PCP Internal Medicine; Visit Provider Orthopaedic Surgery | DX: M25.562 Pain in left knee (principal); M17.12 Unilateral primary osteoarthritis, left knee | CPT/HCPCS: 99212 ==

== ENCOUNTER 2024-12-10 10:06 | Outpatient (AMB) | payer MEDICAID, SELFPAY ==
--- NOTE | 2024-12-10 10:49 | A.OFFVIS_ITS ---
Vital Signs 12/10/24 10:50 Height 5 ft 10 in Weight 240 lb BMI 34.4 BP 116/75 Blood Pressure Location Lt brachial Position Sitting Respiration 16 Pulse 56 Pulse Source Pulse Oximeter Pulse Oximetry (%) 98 Oxygen Delivery Method Room Air Intake Visit Reasons: Unilateral primary osteoarthritis, left knee Carpet Installation Specialist Required: Yes Carpet Installation Specialist Services: Carpet Installation Specialist Present Carpet Installation Specialist Name: Jakub [id number] Allergies No Known Allergies Allergy (Verified 12/10/24 10:52) Medication List - Last Reconciled 12/10/24 by Brenda Severino LPN cyclobenzaprine 5 mg PO TID gabapentin 800 mg PO TID ibuprofen 800 mg PO TID lidocaine 4% (Salonpas (lidocaine)) 1 patch topical DAILY omeprazole 20 mg PO BID HPI HPI Unilateral primary osteoarthritis, left knee: Details: History of Present Illness The patient is a 44-year-old male presenting with chronic bilateral knee pain. The pain has persisted despite various interventions including corticosteroid injections, Euflexxa injections, and physical therapy. He underwent a diagnostic arthroscopy of the left knee with partial medial and lateral meniscectomies and arthroscopic chondroplasty, which did not alleviate the pain. The patient reports instability in the left knee, which led to the prescription of a knee brace. Despite using the brace, he continues to experience pain and instability, impacting his daily activities. An MRI revealed mild diffuse degenerative changes and tearing of the medial and lateral menisci. The patient has not been taking any pain medications currently and reports difficulty sleeping due to the pain. Pain Description - Onset: Chronic pain persisting despite interventions - Quality: Pain from knee to ankle, with instability in the left knee - Exacerbating factors: Activities causing knee instability - Relieving factors: None identified, brace use provides minimal relief - Interference: Pain affects sleep and daily activities Physical Exam - Musculoskeletal: Tenderness to palpation at the medial aspect of the left knee Results - MRI: Mild diffuse degenerative changes and tearing of medial and lateral menisci Pain Management - Affect: Pain impacts sleep and daily activities - Analgesia: No current pain medications being used - Adverse Effects: None reported - Activities of Daily Living: Pain causes difficulty in daily activities and sleep - Aberrant Drug Related Behaviors: None reported [facility] Medical History Lumbago with sciatica Heartburn Pruritic dermatitis Chronic low back pain Surgical History Surgical history unknown Social History (System 07/08/24 @ 15:43 by Adam Cristina) Are you a primary care information associate to a significant other at home: No Do you presently have visiting nurse or other home services: No Patient Tobacco Use Status: Current everyday Tobacco user Cigarettes Per Day: 10 Physical Exam Vital Signs: Last Vital Signs Pulse 56 12/10/24 10:50 Resp 16 12/10/24 10:50 BP 116/75 12/10/24 10:50 Pulse Ox 98 12/10/24 10:50 Oxygen Delivery Method Room Air 12/10/24 10:50 BMI result Body Mass Index 34.4 Assessment & Plan Assessment & Plan (1) Left knee pain: Code(s): M25.562 - Pain in left knee Category: Medical Plan Plan - Proceed with left temporary saphenous nerve stimulator placement for chronic knee pain management. - Discussed the use of a nerve stimulator device for pain relief, which will be placed in the thigh for two months. - Explained that the device has a 70% success rate and provides pain relief lasting 6 to 12 months. - Informed the patient about the procedure, including that it is done through a needle and the patient remains awake. - Advised that the patient can shower with the device but should avoid swimming. - Plan to address any remaining pain from the back after knee treatment. Patient was informed and verbally consented to the use of an ambient scribe for clinic note documentation during this visit. Discussion Notes I discussed with the patient the option of using a temporary saphenous nerve stimulator for managing chronic knee pain, explaining that it involves placing a device in the thigh for two months. I informed him that the device has a 70% success rate and can provide pain relief lasting between 6 to 12 months. I explained the procedure, noting that it is done through a needle while the patient is awake, and advised that he can shower with the device but should avoid swimming. I also mentioned that we would address any residual pain from his back after the knee treatment. Patient Instructions - Follow up with the clinic to schedule the nerve stimulator procedure. - Wear the knee brace as needed for support. - Avoid swimming while the nerve stimulator is in place. - Report any issues or concerns with the device to the clinic. Coding Level of Care Code New Pt Level 4 (15954) Diagnoses Left knee pain M25.562
[2024-12-10 10:50] VITALS: BP 116/75; PULSE 56; RESP 16; O2SAT 98; BMI 34.4
== END 2024-12-10 11:16 | disposition home or self-care (01) ==
LOC: HO.PMC 10:07
PROVIDERS: PCP Internal Medicine; Visit Provider Internal Medicine
DX: M25.562 Pain in left knee (principal)
CPT/HCPCS: 99214

== ENCOUNTER → 2024-12-10 10:06 | Outpatient (BNVA) | payer MEDICAID, SELFPAY | PROVIDERS: PCP Internal Medicine; Visit Provider Internal Medicine | DX: M25.562 Pain in left knee (principal) | CPT/HCPCS: 99212 ==

== ENCOUNTER 2025-01-13 06:30 | Outpatient (REF) | payer MEDICAID, SELFPAY ==
--- OUTSIDE RECORDS SUMMARY | 2025-01-13 06:42 | XMS_ITS | Encounter Summary ---
Author Organization [employer] Address [address] [facility] 7 [place] [address] Care Team Providers Care Project Engineer Name Role Phone Cony Chapman MD Primary Care Provide r Forest Slade PharmD Unavailable [phone] Reason for Visit * Reason Comments Med Refill Encounter Details Date Type Department Care Team (Late st Contact Info) Description 12/19/2023 Refill [facility] [address] [place] [address] Cony Chapman MD [address] [place] [address] Bilateral chronic knee pain Social History Tobacco [...] your housing situation today? I have maria ajanee smith 02/05/[address] you [...] Care Team (Late st Contact Info) Description 01/27/2025 10:00 AM EDT Office Visit [facility] [address] [place] [address] Cony Chapman MD [address] [place] [address] documented as of this encounter Visit Diagnoses Diagnosis Bilateral chronic knee pain documented in this encounter Additional Health Concerns Assessment Noted Time PHQ-9 Depression Total Score: 18 024 10:00 AM EDT documented as of this encounter Care Teams Project Engineer Relationship Specialty Start Date End Date Cony Chapman MD [address] [place] [phone] PCP - General Family Medicine 02/01/22 Forest Slade, CrissD [address] [place] [address] [phone] Pharmacist Internal Medicine 09/03/24 documented as of this encounter
--- OUTSIDE RECORDS SUMMARY | 2025-01-13 06:42 | XMS_ITS | Encounter Summary ---
Author Organization [employer] Address [address] [facility] 7t [place] [address] Care Team Providers Care Market Analyst Name Role Phone Cony Chapman MD Primary Care Provide r Forest Slade PharmD Unavailable [phone] Encounter Details Date Type Department Care Team ([facility] st Contact Info) Description 12/08/2023 Orders Only [facility] [address] [place] [address] [phone] Cony Chapman MD [address] [place] [address] Social History Tobacco Use Types Packs/Day Years [...] Description 01/27/2025 10:00 AM EDT Office Visit [facility] [address] [place] [address] Cony Chapman MD [address] [place] [address] documented as of this encounter Visit Diagnoses Not on filedocumented in this encounter Additional Health Concerns Assessment Noted Time PHQ-9 Depression Total Score: 18 024 10:00 AM EDT documented as of this encounter Care Teams Market Analyst Relationship Specialty Start Date End Date Cony Chapman MD [address] [place] [id number] PCP - General Family Medicine 02/01/22 Forest Slade, CrissD [address] [place] [address] [phone] Pharmacist Internal Medicine 09/03/24 documented as of this encounter
--- OUTSIDE RECORDS SUMMARY | 2025-01-13 06:42 | XMS_ITS | Encounter Summary ---
Author Organization [employer] Address [address] [place] [address] 7 [place] [address] Care Team Providers Care Sugar Refiner Name Role Phone Cony Chapman MD Primary Care Provide r Forest Slade PharmD Unavailable [phone] Reason for Visit * Reason Comments Med Refill Encounter Details Date Type Department Care Team (Late st Contact Info) Description 08/26/2024 Refill [facility] [address] [place], [place] [phone] Michelle Elizondo MD [address] [place] [address] Bilateral chronic knee pain Social History Tobacco [...] with others, in a hotel, in a fdc, living outside on the street, on a [...] Description 01/27/2025 10:00 AM EDT Office Visit [facility] [address] [place] [phone] Cony Chapman MD [address] [place] [address] documented as of this encounter Visit Diagnoses Diagnosis Bilateral chronic knee pain documented in this encounter Additional Health Concerns Assessment Noted Time PHQ-9 Depression Total Score: 11 025 9:54 AM EDT documented as of this encounter Care Teams Sugar Refiner Relationship Specialty Start Date End Date Cony Chapman MD [address] [place] [address] [phone] PCP - General Family Medicine 02/01/22 Forest Slade, CrissD [address] [place] [phone] Pharmacist Internal Medicine 09/03/24 documented as of this encounter
--- OUTSIDE RECORDS SUMMARY | 2025-01-13 06:42 | XMS_ITS | Clinical Summary ---
Author Organization [employer] Address [address] [place] [address] 7 [place] [address] Care Team Providers Care Video Editing Intern Name Role Phone Cony Chapman MD Primary Care Provide r Forest Slade PharmD Unavailable [phone] Allergies No known active allergies Medications lidocaine (Lidoderm) 5 % patchIndications: Lumbosacral radiculopathy Apply 1 patch topically Once per day. Remove & discard patch within 12 hours or as directed by MD. 30 patch 2 10/10/19 24 Active naloxone (Narcan) 4 mg/0.1 mL nasal sprayIndications: Bilateral chronic knee pain Administer 1 spray (4 mg) into affected nostril(s) if needed for opioid reversal. May repeat every 2-3 minutes if needed, alternating nostrils, until medical assistance becomes available. 2 each 3 01/28/20 24 025 Active fluticasone (Flonase) 50 MCG/ACT nasal sprayIndications: Sore throat,Stuffy nose INSTILL 2 SPRAYS IN EACH NOSTRIL ONCE DAILY 48 g 02/23/20 24 Active nicotine (Nicoderm CQ) 14 MG/24HR patchIndications: Tobacco dependence Place 1 patch on the skin 1 (one) time each day at the same time. 21 patch 1 08/26/19 25 Active nicotine polacrilex (RA Mini Nicotine) 2 MG lozengeIndication s:Tobacco dependence Dissolve 1 lozenge in the mouth every 1-2 hours as needed for cigarette cravings. 144 lozenge 08/26/19 25 Active omeprazole (PriLOSEC) [address] capsuleIndication s:Heartburn TAKE 1 CAPSULE BY MOUTH TWICE DAILY IN THE MORNING AND AT NOON DO NOT BREAK, CRUSH, DISSOLVE OR CHEW 180 capsule 08/27/19 25 Active oxyCODONE-acetami nophen (Percocet) 5-325 MG tabletIndications :Bilateral chronic knee pain Take 1 tablet by mouth every 8 (eight) hours if needed for severe pain. 84 tablet 08/28/19 25 Active gabapentin (Neurontin) 300 MG capsuleIndication s:Radiculopathy, unspecified spinal region Take 1 capsule (300 mg) by mouth 3 times daily. 90 capsule 11 12/07/19 25 026 Active acetaminophen (Tylenol Extra Strength) 500 MG tabletIndications :Radiculopathy, unspecified spinal region Take 1 tablet (500 mg) by mouth every 6 (six) hours if needed for mild pain or moderate pain for up to 10 days. 30 tablet 12/07/19 25 025 Active Problems Problem Noted Date Diagnosed Date [...] how to properly take the medication and QUARTZ MOUNTER appointments was done, I let him know if during comes back abnormal I will have to discontinue this medication half-way (current) use of opiate analgesic 06/19 Tobacco [...] 5/325mg Q 12hrs PRN patient referred for QUARTZ MOUNTER extensive discussion done about adherence to contract, [...] Encounters Date Type Department Care Team Description 12/06/2024 11:00 AM EDT Office Visit [facility] [address] [place] [address] [phone] Yulia Soto NP Radiculopathy, unspecified spinal region (Primary Dx) 12/06/[address] [address] Cony Chapman MD telephone call 12/06/2024 Travel 11/16/2024 Telephone [facility] [address] [place] [phone] Cony Chapman MD Medication Question 10/28/[address] [phone] Cony Chapman MD 10/14/[address] [address] Cony Chapman MD from Last 3 Months Immunizations Immunization Administration Dates Next Due Influenza, seasonal, injectable, preservative fr ee 04/08/2024 Pneumococcal Conjugate PCV 20 04/08/2024 Family History Medical History Relation Name Comments Diabetes Mother Relation Name Status Comments Mother Social History Tobacco Use Types Packs/Day Years Used Date Smoking Tobacco: Every Day Cigarettes 2 34.7 Started: 1990 Passive Smoke Exposure: Current Smokeless [...] with others, in a hotel, in a mcfp, living outside on the street, on a [...] Sign Reading Time Taken Comments Blood Pressure 108/80 12/06/2024 9:46 AM EDT Pulse 54 12/06/2024 9:46 AM EDT Temperature 36.9 C (98.4 F) 12/06/2024 9:46 AM EDT Respiratory Rate 18 12/06/2024 9:46 AM EDT Oxygen Saturation 96% 12/05/2023 9:52 AM EDT Inhaled Oxygen Concentration - - Weight 110 kg (242 lb 12.8 oz) 12/06/2024 9:46 A M EDT Height 180.3 cm (5' 11 ) 12/06/2024 9:46 AM EDT Body Mass Index 33.86 12/06/2024 9:46 AM EDT Plan of Treatment Upcoming Encounters Date Type Department Care Team (Late st Contact Info) Description 01/27/2025 10:00 AM EDT Office Visit [facility] [address] [place] [address] Cony Chapman MD [address] [place], [place] [phone] Health Maintenance Due Date Last Done Comments CT Colonography 1978 Colonoscopy 1978 FIT 1978 Sigmoidoscopy 1978 Disability Screening 1978 Alcohol/Substance Use Screening 1990 Family Planning (PISQ) 1993 DTaP/Tdap/Td Vaccines (1 - Tdap) 1997 Hepatitis B Vaccines (1 of 3 - 19+ 3-dose series) 1997 COVID-19 Vaccine ( - 2023-2 5 season) 2024 Influenza Vaccine (#1) 2024 04/08/2024 Depression Monitoring 02/02/2025 08/03/2024 , 08/03/2024 FOBT 06/18/2025 06/18/2024 SDOH Screening 07/27/2025 07/27/2024 Tobacco Screening 12/06/2025 12/06/2024 Lipid Panel 02/04/2027 02/04/2022 Colorectal Cancer Screening [...] Result Negative Negative 06/24/19 10:54 PM EST [facility] (CLIA #:[id number]) Comment: NEGATIVE TEST RESULT. A negative Cologuard [...] (Vito Adam al, N Engl J Med 2014;370(14):9898-2701) The normal value (reference range) for this assay is negative. COLOGUARD RE-SCREENING RECOMMENDATION: Periodic colorectal cancer screening is an important part of preventive healthcare for asymptomatic individuals at average risk for colorectal cancer. Following a negative Cologuard result, the [place] Cancer Society and U.S. Multi-Society Task Force screening guidelines recommend a Cologuard re-screening interval of 3 years. References: [place] [employer] Guideline for Colorectal Cancer Screening: https://www.cancer.org/cancer/gvtix-irctpt-yudsdw/hpkukhzaf-uiasdzvkx-rvgmgyu/ac s-rec ommendations.html.; Mookie DK, Christa CR, Shayla SchaferK, Colorectal Cancer Screening: Recommendations for Physicians and Patients from the U.S. Multi-Society Task Force on Colorectal Cancer Screening , Am J Gastroenterology 2017; 112:2006-8972. TEST DESCRIPTION: Composite algorithmic analysis of stool [...] (Vito Adam al, N Engl J Med 2014;370(14):0682-6048.) Cologuard may produce a false negative or false positive result (no colorectal cancer or precancerous polyp present at colonoscopy follow up). A negative Cologuard test result does not guarantee the absence of CRC or advanced adenoma (pre-cancer). The current Cologuard screening interval is every 3 years. ([place] Cancer Society and U.S. Multi-Society Task Force). Cologuard performance data in a 10,000 patient pivotal study using colonoscopy as the reference method can be accessed at the following location: www.WellRight.com/results. Additional description of the Cologuard test process, warnings and precautions can be found at www.cologShark Punchrd.com. Stool specimen (specimen) 06/18/2024 7:45 AM EST 06/19/2024 12:48 PM EST us Cony Arango MD LAB MOLECULAR DIAGNOS TICS ORDERABLES Final Result Performing Organization Address [facility] de Phone Number [facility] (CLIA #:[id number]) Shirley Russell [place] [phone], * HEPATITIS C AB W/REFL TO HCV [...] a test for HCV RNA (test code 07559) is suggested. For additional information please refer to http://education.blogTV.CogniK/faq/OZF42m2 (This link is being provided for informational/ educational purposes only.) 02/04/2022 8:41 AM EDT us Cony Arango MD HISTORICAL/NON ORDERA BLE LABS Final Result Performing Organization Address [facility] Co de Phone Number CONVERTED LEGACY [...] purpose. For additional information please refer to http://Ingenic.iAmplify/faq/CWS184 (This link is being provided for informational/ educational purposes only.) The performance of this assay has not been clinically validated in patients less than 2 years old. 02/04/2022 8:41 AM EDT Cony Arango MD LAB BLOOD ORDERABLES Final Result CONVERTED LEGACY LABS * (ABNORMAL) LIPID PANEL, STANDARD (02/04/2022 8:41 AM EDT) Pathologist [facility] Chol/HDLC Ratio 3.8 <5.0 (calc) CONVERTED LEGACY [...] factors. LDL-C is now calculated using the Almas-Ursula calculation, which is a validated novel method providing better accuracy than the Friedewald equation in the estimation of LDL-C. Almas PRABHAKAR et al. KEVYN. 2013;310(19): 6669-8464 (http://education.[employer] Management.CogniK/faq/MHW270) Non-HDL Cholesterol 111 <130 mg/dL (calc) CONVERTED [...] Most Recently Relevant to Health Maintenance Insurance [address] [place] [address] [facility] Care Teams Video Editing Intern Relationship Specialty Start Date End Date Cony Chapman MD [address] [place] [address] PCP - General Family Medicine 02/01/22 Forest Slade, PharmD [address] [place] [address] Pharmacist Internal Medicine 09/03/24
--- OUTSIDE RECORDS SUMMARY | 2025-01-13 06:42 | XMS_ITS | Encounter Summary ---
Author Organization [employer] Address [address] [facility] 7 [place] [address] Care Team Providers Care Plastics Supervisor Name Role Phone Cony Chapman MD Primary Care Provide r Forest Slade PharmD Unavailable [phone] Reason for Visit * Reason Comments Med Refill Encounter Details Date Type Department Care Team (Late st Contact Info) Description 12/30/2023 Refill [facility] [address] [place] [address] Cony Chapman MD [address] [place] [address] Bilateral chronic knee pain Social History Tobacco [...] Description 01/27/2025 10:00 AM EDT Office Visit [facility] [address] [place] [address] Cony Chapman MD [address] [place] [address] documented as of this encounter Visit Diagnoses Diagnosis Bilateral chronic knee pain documented in this encounter Additional Health Concerns Assessment Noted Time PHQ-9 Depression Total Score: 18 024 10:00 AM EDT documented as of this encounter Care Teams Plastics Supervisor Relationship Specialty Start Date End Date Cony Chapman MD [address] [place] [phone] PCP - General Family Medicine 02/01/22 Forest Slade, CrissD [address] [place] [address] [phone] Pharmacist Internal Medicine 09/03/24 documented as of this encounter
== END 2025-01-13 06:31 | disposition home or self-care (01) ==
LOC: CF 06:30
PROVIDERS: Visit Provider Internal Medicine
DX: M17.12 Unilateral primary osteoarthritis, left knee (principal)
CPT/HCPCS: 64555; C1778; J2003

== ENCOUNTER 2025-01-13 09:39 | Outpatient (AMB) | payer MEDICAID, SELFPAY ==
[2025-01-13 09:45] VITALS: BP 110/87; PULSE 86; RESP 16; O2SAT 98; BMI 34.4
--- NOTE | 2025-01-13 09:45 | A.OFFVIS_ITS ---
Vital Signs 01/13/25 09:45 01/13/25 11:37 Height 5 ft 10 in Weight 240 lb BMI 34.4 BP 110/87 124/74 Blood Pressure Location Lt brachial Rt radial Position Sitting Sitting Respiration 16 16 Pulse 86 54 Pulse Source Pulse Oximeter Pulse Oximeter Pulse Oximetry (%) 98 97 Oxygen Delivery Method Room Air Room Air Intake Visit Reasons: Left saphenous Sprint Allergies No Known Allergies Allergy (Verified 12/10/24 10:52) HPI HPI Left saphenous Sprint: Details: Patient presents for scheduled procedure. Denies any recent cough, cold, infection, fever or other significant changes in medical history since last office visit. [facility] Medical History Lumbago with sciatica Heartburn Pruritic dermatitis Chronic low back pain Surgical History Surgical history unknown Social History (System 07/08/24 @ 15:43 by Adam Cristina) Are you a primary morning caregiver to a significant other at home: No Do you presently have visiting nurse or other home services: No Patient Tobacco Use Status: Current everyday Tobacco user Cigarettes Per Day: 10 Physical Exam Vital Signs: Last Vital Signs Pulse 86 01/13/25 09:45 Resp 16 01/13/25 09:45 BP 110/87 01/13/25 09:45 Pulse Ox 98 01/13/25 09:45 Oxygen Delivery Method Room Air 01/13/25 09:45 BMI result Body Mass Index 34.4 Office Procedures Details: Peripheral Nerve Stimulation Temporary Lead Placement, Ultrasound-Guided, Saphenous Nerve, LEFT ? After the risks, benefits and alternatives were discussed with the patient and informed consentwas obtained, patient was placed in the supine position and padded to foster comfort. Appropriate skin and bony landmarks were identified, and pertinent vascular structures were located. The skin overlying the needle entry site was prepped and draped in sterile fashion. Ultrasound was used to identify the femoral artery, the femoral vein and the saphenous nerve. After identifying and marking the intended target along the course of the saphenous nerve, the skin around the planned entry point and the subcutaneous tissues were injected with local anesthetic. An introducer needle and stimulating probe were assembled, inserted and advanced along the intended course of the saphenous; nerve, taking care to maintain the proper depth of insertion as the introducer was advanced under ultrasound guidance. The introducer needle was delivered to a location in proximity to the nerve taking care not to puncture the femoral artery or the vein. Multiple stimulation parameters were used to deliver stimulation to the saphenous nerve in concert with stimulating at multiple positions around the nerve. Nerve target acquisition was confirmed noting generation of sensory and mild motor effects (paresthesia, muscle tension, etc) in the medial knee, leg and ankle; corresponding to the distribution of the saphenous nerve. Various electrical parameter combinations were tested, and the lead location was adjusted (physically relocated under ultrasound guidance) until the patient indicated medial knee paresthesia and tension overlapping the distribution of the patient?s typical region of pain. The stimulating probe was removed from the introducer and a percutaneous lead was guided through the needle and delivered to a location in similar proximity to the nerve. Final location was verified with electrical stimulation and documented. The introducer needle was removed, and the exposed end of the percutaneous lead was attached to an external stimulator unit. Various electrical parameter combinations were again tested until the patient indicated paresthesia and muscle tension overlapping the distribution of the patient?s typical region of pain. After confirming that lead impedance was in the normal range, the external unit was detached, the needle was removed, and the lead was anchored at the skin. The lead was threaded into the connector block and electrical continuity and desired patient response was confirmed. The connector block was attached to the external stimulator unit. The site was covered with a sterile occlusive dressing. A final ultrasound image was taken to document final placement. The patient was observed for stability of vital signs and comfort. Sprint PNS Device: Sprint PNS Device [id number] Percutaneous Peripheral Neuroelectrode Procedure: 75868 - Percutaneous Peripheral Neuroelectrode Procedure code (CPT) selection complete Office Meds lidocaine HCl 10 mg/mL (1 %) injection solution Performing Provider: Krystina Scott APRN, CARTOGRAPHIC AIDE Performing Location: [facility] [place] [facility] Administered by: Lonnie Black MD on 01/13/25 10:33 Dose Route Admin Location Dispensed Lot Number Expiration Date NDC Home Care Assistant 5 mL subcut 5 mL Total Dispensed Waste 5 mL 0 % Assessment & Plan Assessment & Plan (1) Osteoarthritis of left knee: Code(s): M17.12 - Unilateral primary osteoarthritis, left knee Category: Medical (2) Left knee pain: Code(s): M25.562 - Pain in left knee Category: Medical Plan Patient is status post left temporary saphenous nerve stimulator placement. Patient tolerated procedure well and was discharged home in stable condition with discharge instructions. All questions were answered. We will follow-up via telephone or in clinic to assess response to therapy. A follow-up appointment was made during today's visit. Orders: Orders US guide needle placement Today M17.12 - Unilateral primary osteoarthritis, left knee AMB Sprint PNS Today M17.12 - Unilateral primary osteoarthritis, left knee Coding Level of Care Code Procedure Only Diagnoses Osteoarthritis of left knee M17.12 Left knee pain M25.562 CPT Codes Sprint PNS - Sprint PNS Device: Sprint PNS Device ([id number]) Sprint PNS - SPRINT: 89168 - Percutaneous Peripheral Neuroelectrode ([id number]) Implantable Device Implantable Device Implantable Devices Qty Home Care Assistant Implant Date Expiration Date Analgesic PENS system 1 [employer] 01/13/25
[2025-01-13 11:37] VITALS: BP 124/74; PULSE 54; RESP 16; O2SAT 97
== END 2025-01-13 11:39 | disposition home or self-care (01) ==
LOC: HO.PMCPRC 09:39
PROVIDERS: PCP Internal Medicine; Visit Provider Internal Medicine
DX: M17.12 Unilateral primary osteoarthritis, left knee (principal); M25.562 Pain in left knee
CPT/HCPCS: 64555

== ENCOUNTER 2025-01-19 09:50 | Outpatient (AMB) | payer MEDICAID, SELFPAY ==
--- NOTE | 2025-01-19 10:08 | A.OFFVIS_ITS ---
Vital Signs 01/19/25 10:09 Height 5 ft 10 in Weight 239 lb BMI 34.3 BP 110/78 Blood Pressure Location Rt brachial Position Sitting Respiration 16 Pulse 70 Pulse Source Pulse Oximeter Pulse Oximetry (%) 96 Oxygen Delivery Method Room Air Intake Visit Reasons: s/p left saphenous Sprint Guide Visitor Required: Yes Guide Visitor Services: Guide Visitor Present Guide Visitor Name: Mello [phone] Information Interpreted: non-clinical & clinical Allergies No Known Allergies Allergy (Verified 01/19/25 10:11) Medication List - Last Reconciled 01/19/25 by Brenda Severino LPN cyclobenzaprine 5 mg PO TID gabapentin 800 mg PO TID ibuprofen 800 mg PO TID lidocaine 4% (Salonpas (lidocaine)) 1 patch topical DAILY omeprazole 20 mg PO BID HPI HPI s/p left saphenous Sprint: Details: History of Present Illness The patient is a 44-year-old male presenting for follow-up after left saphenous nerve stimulator placement for chronic leg pain. The patient reports significant improvement >90% in his leg pain since the felice cement of the nerve stimulator. He no longer experiences the severe pain he had prior to the procedure, and his calf feels better. Before the device was placed, the patient experienced a mass of flesh in the leg area, which has decreased significantly since the procedure. Pain Description - Onset: Chronic leg pain prior to nerve stimulator placement - Quality: Significant improvement post-procedure - Location: Leg, specifically calf area - Exacerbating factors: Previously had a mass of flesh in the leg area Physical Exam - Integumentary: Lead insertion site clean, dry, and intact Pain Management - Analgesia: Significant reduction in leg pain post nerve stimulator placement - Activities of Daily Living: Improvement in calf condition, facilitating better mobility COUNT INCLUDES THE [facility] Medical History Lumbago with sciatica Heartburn Pruritic dermatitis Chronic low back pain Surgical History Surgical history unknown Social History (System 07/08/24 @ 15:43 by Adam Cristina) Are you a primary acute care clinical nurse specialist to a significant other at home: No Do you presently have visiting nurse or other home services: No Patient Tobacco Use Status: Current everyday Tobacco user Cigarettes Per Day: 10 Physical Exam Vital Signs: Last Vital Signs Pulse 70 01/19/25 10:09 Resp 16 01/19/25 10:09 BP 110/78 01/19/25 10:09 Pulse Ox 96 01/19/25 10:09 Oxygen Delivery Method Room Air 01/19/25 10:09 BMI result Body Mass Index 34.3 Assessment & Plan Assessment & Plan (1) Left knee pain: Code(s): M25.562 - Pain in left knee Category: Medical Plan Plan Patient was informed and verbally consented to the use of an ambient scribe for clinic note documentation during this visit. 1. Chronic Leg Pain - Plan: Follow-up in 7 weeks for lead removal Discussion Notes I discussed with the patient the significant improvement in his leg pain following the nerve stimulator placement. We agreed on a follow-up appointment in seven weeks for lead removal. Patient Instructions - Follow up in 7 weeks for lead removal Coding Level of Care Code Est Pt Level 3 (83028) Diagnoses Left knee pain M25.562
[2025-01-19 10:09] VITALS: BP 110/78; PULSE 70; RESP 16; O2SAT 96; BMI 34.3
--- OUTSIDE RECORDS SUMMARY | 2025-01-19 10:48 | XMS_ITS | Encounter Summary ---
Author Organization [employer] Address [address] [facility] 7 [place] [address] Care Team Providers Care Trial Management Associate Name Role Phone Cony Chapman MD Primary Care Provide r Forest Slade PharmD Unavailable [phone] Reason for Visit * Reason Comments Med Refill Encounter Details Date Type Department Care Team (Late st Contact Info) Description 12/30/2023 Refill [facility] [address] [place] [address] Cony Chapman MD [address] [place] [address] Bilateral chronic knee pain Social History Tobacco [...] Care Team (Late st Contact Info) Description 02/03/2025 11:15 AM EDT Office Visit [facility] [address] [place] [address] Cony Chapman MD [address] [place] [address] documented as of this encounter Visit Diagnoses Diagnosis Bilateral chronic knee pain documented in this encounter Additional Health Concerns Assessment Noted Time PHQ-9 Depression Total Score: 18 024 10:00 AM EDT documented as of this encounter Care Teams Trial Management Associate Relationship Specialty Start Date End Date Cony Chapman MD [address] [place] [id number] PCP - General Family Medicine 02/01/22 Forest Slade, CrissD [address] [place] [address] [phone] Pharmacist Internal Medicine 09/03/24 documented as of this encounter
--- OUTSIDE RECORDS SUMMARY | 2025-01-19 10:48 | XMS_ITS | Clinical Summary ---
Author Organization [employer] Address [address] [place] [address] 7 [place] [address] Care Team Providers Care Cobbler Sole Name Role Phone Cony Chapman MD Primary Care Provide r Forest Slade PharmD Unavailable [phone] Allergies No known active allergies Medications lidocaine [...] for severe pain. 84 tablet 5 Active gabapentin (Neurontin) 300 MG capsuleIndication s:Radiculopathy, unspecified spinal region Take 1 capsule (300 mg) by mouth 3 times daily. 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 06/19 Tobacco [...] 5/325mg Q 12hrs PRN patient referred for [employer]ER [employer]ER extensive discussion done about adherence to contract, [...] Description 12/06/2024 11:00 AM EDT Office Visit [facility] [address] [place] [phone] Yulia Soto NP Radiculopathy, unspecified spinal region (Primary Dx) 12/06/2024 Telephone [facility] [address] [place] [address] Cony Chapman MD telephone call 12/06/2024 Travel 11/16/2024 Telephone [facility] [address] [place] [address] Cony Chapman MD Medication Question 10/28/[address] [address] Cony Chapman MD from Last 3 Months [...] with others, in a hotel, in a fci, living outside on the street, on a [...] Description 02/03/2025 11:15 AM EDT Office Visit [facility] [address] [place] [address] Cony Chapman MD [address] [place] [phone] Health Maintenance Due Date Last Done Comments [...] Result Negative Negative 06/24/19 10:54 PM EST [employer] (CLIA #:[id number]) Comment: NEGATIVE TEST RESULT. A negative Cologuard [...] (Vito Adam al, N Engl J Med 2014;370(14):7414-3187) The normal value (reference range) for this assay is negative. COLOGUARD RE-SCREENING RECOMMENDATION: Periodic colorectal cancer screening is an important part of preventive healthcare for asymptomatic individuals at average risk for colorectal cancer. Following a negative Cologuard result, the [place] Cancer Society and U.S. Multi-Society Task Force screening guidelines recommend a Cologuard re-screening interval of 3 years. References: [place] [employer] Society Guideline for Colorectal Cancer Screening: https://www.cancer.org/cancer/ttjwx-uxwmrr-ofccfk/ahvhpcagz-uzfnguohw-ezqbhcn/ac s-rec ommendations.html.; Mookie DK, Christa PRETTY, Shayla SchaferK, Colorectal Cancer Screening: Recommendations for Physicians and Patients from the U.S. Multi-Society Task Force on Colorectal Cancer Screening , Am J Gastroenterology 2017; 112:6037-9380. TEST DESCRIPTION: Composite algorithmic analysis of stool [...] Allen et al, N Engl J Med 2014;370(14):3397-0616.) Cologuard may produce a false negative or false positive result (no colorectal cancer or precancerous polyp present at colonoscopy follow up). A negative Cologuard test result does not guarantee the absence of CRC or advanced adenoma (pre-cancer). The current Cologuard screening interval is every 3 years. ([place] Cancer Society and U.S. Multi-Society Task Force). Cologuard performance data in a 10,000 patient pivotal study using colonoscopy as the reference method can be accessed at the following location: www.MIKA Audio.Towi/results. Additional description of the Cologuard test process, warnings and precautions can be found at www.Fredio. Stool specimen (specimen) 06/18/2024 7:45 AM EST 06/19/2024 12:48 PM EST us Cony Arango MD LAB MOLECULAR DIAGNOS TICS ORDERABLES Final Result Performing Organization Address City/[facility]/ZIP Co de Phone Number [employer] (CLIA #:[id number]) [place] [address], * HEPATITIS C AB W/REFL TO HCV [...] a test for HCV RNA (test code 75179) is suggested. For additional information please refer to http://education.Weeding Technologies.Towi/faq/ROJ28j0 (This link is being provided for informational/ educational purposes only.) 02/04/2022 8:41 AM EDT Cony Arango MD HISTORICAL/NON ORDERA BLE LABS Final Result Performing Organization Address [facility]/ZIP Co de Phone Number CONVERTED LEGACY LABS [...] purpose. For additional information please refer to http://education.BitPass/faq/IQI444 (This link is being provided for informational/ educational purposes only.) The performance of this assay has not been clinically validated in patients less than 2 years old. 02/04/2022 8:41 AM EDT us Cony Arango MD LAB BLOOD ORDERABLES Final Result Performing Organization Address City/State/[facility] Co de Phone Number CONVERTED LEGACY [...] factors. LDL-C is now calculated using the Almas-Vergara calculation, which is a validated novel method providing better accuracy than the Friedewald equation in the estimation of LDL-C. Almas PRABHAKAR et al. KEVYN. 2013;310(19): 7600-8064 (http://education.ScaleDB.Towi/faq/SKN492) Non-HDL Cholesterol 111 <130 mg/dL (calc) CONVERTED [...] Most Recently Relevant to Health Maintenance Insurance [facility] C3 HSN PARTIAL Care Teams Cobbler Sole Relationship Specialty Start Date End Date Cony Chapman MD [address] [place] [phone] PCP - General Family Medicine 02/01/22 Forest Slade, PharmD [address] [place] [phone] Pharmacist Internal Medicine 09/03/24
--- OUTSIDE RECORDS SUMMARY | 2025-01-19 10:48 | XMS_ITS | Encounter Summary ---
Author Organization [employer] Address [address] [place] [address] 7 [place] [address] Care Team Providers Care Dorr Operator Name Role Phone Cony Chapman MD Primary Care Provide r Forest Slade PharmD Unavailable [phone] Reason for Visit * Reason Comments Med Refill Encounter Details Date Type Department Care Team (Late st Contact Info) Description 08/26/2024 Refill [facility] [address] [place], [place] [phone] Michelle Elizondo MD [address] [place] [address] Bilateral chronic knee pain Social History Tobacco [...] with others, in a hotel, in a care home, living outside on the street, on a [...] Description 02/03/2025 11:15 AM EDT Office Visit [facility] [address] [place] [address] Cony Chapman MD [address] [place] [phone] documented as of this encounter Visit Diagnoses Diagnosis Bilateral chronic knee pain documented in this encounter Additional Health Concerns Assessment Noted Time PHQ-9 Depression Total Score: 11 025 9:54 AM EDT documented as of this encounter Care Teams Dorr Operator Relationship Specialty Start Date End Date Cony Chapman MD [address] [place] [address] [phone] PCP - General Family Medicine 02/01/22 Forest Slade, CrissD [address] [place] [phone] Pharmacist Internal Medicine 09/03/24 documented as of this encounter
--- OUTSIDE RECORDS SUMMARY | 2025-01-19 10:48 | XMS_ITS | Encounter Summary ---
Author Organization [employer] Address [address] [facility] 7 [place] [address] Care Team Providers Care Practice Support Specialist Name Role Phone Cony Chapman MD Primary Care Provide r Forest Slade PharmD Unavailable [phone] Reason for Visit * Reason Comments Med Refill Encounter Details Date Type Department Care Team (Late st Contact Info) Description 12/19/2023 Refill [facility] [address] [place] [address] Cony Chapman MD 230 [place] [address] Bilateral chronic knee pain Social History Tobacco [...] Description 02/03/2025 11:15 AM EDT Office Visit [facility] [address] [place] [address] Cony Chapman MD 230 [place] [address] documented as of this encounter Visit Diagnoses Diagnosis Bilateral chronic knee pain documented in this encounter Additional Health Concerns Assessment Noted Time PHQ-9 Depression Total Score: 18 024 10:00 AM EDT documented as of this encounter Care Teams Practice Support Specialist Relationship Specialty Start Date End Date Cony Chapman MD [address] [place] [address] PCP - General Family Medicine 02/01/22 Forest Slade, CrissD [address] [place] [address] [phone] Pharmacist Internal Medicine 09/03/24 documented as of this encounter
--- OUTSIDE RECORDS SUMMARY | 2025-01-19 10:48 | XMS_ITS | Encounter Summary ---
Author Organization [employer] Address [address] [facility] 7t [place] [address] Care Team Providers Care Rn Heart Name Role Phone Cony Chapman MD Primary Care Provide r Forest Slade PharmD Unavailable [phone] Encounter Details Date Type Department Care Team ([facility] st Contact Info) Description 12/08/2023 Orders Only [facility] [address] [place] [address] [phone] Cony Chapman MD 230 [place] [address] Social History Tobacco Use Types Packs/Day Years [...] Description 02/03/2025 11:15 AM EDT Office Visit [facility] 230 [place] [address] Cony Chapman MD [address] [place] [address] documented as of this encounter Visit Diagnoses Not on filedocumented in this encounter Additional Health Concerns Assessment Noted Time PHQ-9 Depression Total Score: 18 024 10:00 AM EDT documented as of this encounter Care Teams Rn Heart Relationship Specialty Start Date End Date Cony Chapman MD [address] [place] [phone] PCP - General Family Medicine 02/01/22 Forest Slade, CrissD [address] [place] [address] [phone] Pharmacist Internal Medicine 09/03/24 documented as of this encounter
== END 2025-01-19 10:44 | disposition home or self-care (01) ==
LOC: HO.PMC 09:51
PROVIDERS: PCP Internal Medicine; Referring Provider Internal Medicine; Visit Provider Internal Medicine
DX: G89.29 Other chronic pain (principal); M25.562 Pain in left knee
CPT/HCPCS: 99024

== ENCOUNTER → 2025-01-19 09:50 | Outpatient (BNVA) | payer MEDICAID, SELFPAY | PROVIDERS: PCP Internal Medicine; Visit Provider Internal Medicine | DX: M25.562 Pain in left knee (principal) | CPT/HCPCS: 99212 ==

== ENCOUNTER 2025-03-09 08:25 | Outpatient (AMB) | payer MEDICAID, SELFPAY ==
--- NOTE | 2025-03-09 09:06 | MHC.OFFVIS ---
Vital Signs 03/09/25 09:08 Height 5 ft 10 in Weight 248 lb BMI 35.6 BP 122/76 Blood Pressure Location Lt brachial Position Sitting Respiration 16 Pulse 86 Pulse Source Pulse Oximeter Pulse Oximetry (%) 97 Oxygen Delivery Method Room Air Intake Visit Reasons: Left Sprint removal Message Broker Developer Required: Yes Message Broker Developer Services: Message Broker Developer Present Message Broker Developer Name: [id number] Information Interpreted: clinical only Allergies No Known Allergies Allergy (Verified 03/09/25 09:15) Medication List - Last Reconciled 03/09/25 by Brenda Severino LPN cyclobenzaprine 5 mg PO TID gabapentin 800 mg PO TID ibuprofen 800 mg PO TID lidocaine 4% (Salonpas (lidocaine)) 1 patch topical DAILY omeprazole 20 mg PO BID HPI HPI Left Sprint removal: Details: History of Present Illness The patient is a 44-year-old male presenting with leg pain. The leg pain was initially severe, prompting the use of a Sprint device for management. Over time, the pain has become less intense, although it remains occasionally disturbing. The Sprint device was removed during this visit, and the insertion site was noted to be clean and dry with the lead tip intact. The patient reports that the pain is not as severe as it was initially, indicating some improvement. Pain Description - Onset and Timing: Initially severe, now less intense - Quality and Character: Occasionally disturbing - Primary Location: Leg - Exacerbating and Relieving Factors: Pain has improved over time Physical Exam - Musculoskeletal: Lead insertion site clean and dry, lead removed with tip intact Results Pain Management - Analgesia: Pain has improved, Sprint device removed - Activities of Daily Living: Pain is less disturbing, indicating improved function [facility] Medical History Lumbago with sciatica Heartburn Pruritic dermatitis Chronic low back pain Surgical History Surgical history unknown Social History (System 07/08/24 @ 15:43 by Adam Cristina) Are you a primary resident caregiver to a significant other at home: No Do you presently have visiting nurse or other home services: No Patient Tobacco Use Status: Current everyday Tobacco user Cigarettes Per Day: 10 Physical Exam Vital Signs: Last Vital Signs Pulse 86 03/09/25 09:08 Resp 16 03/09/25 09:08 BP 122/76 03/09/25 09:08 Pulse Ox 97 03/09/25 09:08 Oxygen Delivery Method Room Air 03/09/25 09:08 BMI result Body Mass Index 35.6 Assessment & Plan Assessment & Plan (1) Bilateral knee pain: Code(s): M25.561 - Pain in right knee; M25.562 - Pain in left knee Category: Medical Plan Plan Patient was informed and verbally consented to the use of an ambient scribe for clinic note documentation during this visit. 1. Leg Pain - Monitor pain levels and consider re-implementation of Sprint device if pain recurs, not more frequently than once a year. Discussion Notes I discussed with the patient that we will monitor his pain levels and if the pain returns, we can consider re-implementing the Sprint device, ideally not more frequently than once a year. Patient Instructions - Monitor your pain levels and note any changes. - If pain returns, contact us to discuss the possibility of re-implementing the Sprint device. Coding Level of Care Code Est Pt Level 3 (55272) Diagnoses Bilateral knee pain M25.561; M25.562
[2025-03-09 09:08] VITALS: BP 122/76; PULSE 86; RESP 16; O2SAT 97; BMI 35.6
--- OUTSIDE RECORDS SUMMARY | 2025-03-09 16:06 | XMS_ITS | Encounter Summary ---
Author Organization [employer] Address [address] [place] [address] 7 [place] [address] Care Team Providers Care Ladle Watcher Name Role Phone Cony Chapman MD Primary Care Provide r Forest Slade PharmD Unavailable Talia Suggs RN Unavailable [phone] Salma Workman Unavailable Reason for Visit * Reason Comments Care Management HOUSING APPLICATION QUESTION Encounter Details Date Type Department Care Team (Late st Contact Info) Description 03/07/2025 Patient Outreach [facility] [address] [place], [place] [phone] Cony Chapman MD 230 [place], [place] [phone] Care Management (HOUSING APPLICATION QUESTION) Social History Tobacco Use Types Packs/Day Years Used Date Smoking Tobacco: Every Day Cigarettes 2 34.9 Started: 1990 Passive Smoke Exposure: Current Smokeless Tobacco: Never Alcohol Use Standard Drinks/Week Comments Yes 0 (1 standard drink = 0.6 oz pur e alcohol) Depression Answer Date Recorded Patient Health Questionnaire-9 Score 19 02/22/2025 Patient Health Questionnaire-9 Score 19 02/22/2025 Last PHQ-9: Questionnaire Data Not on file 1 04/24/2024 Housing Stability Answer Date Recorded What is your housing situation today? I do not have housing (Staying with others, in a hotel, in a long-term, living outside on the street, on a beach, in a car, or in a park 07/27/[address] you li ve. Do you have problems with any of the following? None of the above 07/27/2024 Food Insecurity Answer Date Recorded Within the past 12 months, y ou worried that your food would run out before you got money to buy more: Sometimes True 2024 Within the past 12 months,th e food you bought just didn't last and you didn't have enough money to get more: Sometimes True 02/21/2025 Transportation Answer Date Recorded In the past [...] Date Recorded Patient Health Questionnaire-2 Score 5 02/22/2025 Internet Access Answer Date Recorded Internet Access Q1 Yes 02/26/2024 Internet Access Q2 Not on file 02/26/2024 Sex and Gender Information Value Date Recorded Sex Assigned at Male 02/18/2022 10:40 AM EDT Legal Sex Male 10:40 AM EDT Gender Identity Male 02/18/2022 10:40 AM EDT Sexual Orientation Straight 02/18/2022 10 :40 AM EDT documented as of this encounter Progress Notes * Talia Suggs RN - 03/07/2025 9:53 AM EST CM Talia Suggs RN received incoming call from Patient requesting clarification on where housing applications are to be brought. CM asked W Salma who clarified that address is on the front of each application. Patient agrees to bring in applications and required documents. documented in this encounter Plan of Treatment Upcoming Encounters Date Type Department Care Team (Late st Contact Info) Description 04/01/2025 11:00 AM EST Telemedicine [facility] MED[facility]INE [address] [place] [address] Cony Chapman MD [address] [place], [place] [phone] documented as of this encounter Visit Diagnoses Not on filedocumented in this encounter Additional Health Concerns Assessment Noted Time PHQ-9 Depression Total Score: 19 025 10:14 AM EST documented as of this encounter Care Teams Ladle Watcher Relationship Specialty Start Date End Date Cony Chapman MD [address] [place] [address] [phone] PCP - General Family Medicine 02/01/22 Forest Slade, CrissD [address] [place] [address] [phone] Pharmacist Internal Medicine 09/03/24 Talia Suggs, KATHY [address] [place] [address] [phone] Registered Nurse Family Medicine 02/04/25 Salma Workman 02/04/25 documented as of this encounter
--- OUTSIDE RECORDS SUMMARY | 2025-03-09 16:06 | XMS_ITS | Encounter Summary ---
Author Organization [employer] Address [address] [facility] 7t [place] [address] Care Team Providers Care Practice Professional Name Role Phone Cony Chapman MD Primary Care Provide r Forest Slade PharmD Unavailable [phone] Talia Suggs RN Unavailable [phone] Salma Workman Unavailable Reason for Visit * Reason Comments Med Refill Encounter Details Date Type Department Care Team (Late st Contact Info) Description 12/30/[address] [facility] MEDICINE 230 [place], [place] [phone] Cony Chapman MD 230 [place], [place] [phone] Bilateral chronic knee pain Social History Tobacco [...] Info) Description 04/01/2025 11:00 AM EST Telemedicine [facility] MEDICINE [address] [place] [address] Cony Chapman MD [address] [place] [address] documented as of this encounter Visit Diagnoses Diagnosis Bilateral chronic knee pain documented in this encounter Additional Health Concerns Assessment Noted Time PHQ-9 Depression Total Score: 18 024 10:00 AM EDT documented as of this encounter Care Teams Practice Professional Relationship Specialty Start Date End Date Cony Chapman MD [address] [place] [address] PCP - General Family Medicine 02/01/22 Forest Slade, CrissD [address] [place] [phone] Pharmacist Internal Medicine 09/03/24 Talia Suggs, KATHY [address] [place] [phone] Registered Nurse Family Medicine 02/04/25 Salma Workman 02/04/25 documented as of this encounter
--- OUTSIDE RECORDS SUMMARY | 2025-03-09 16:06 | XMS_ITS | Clinical Summary ---
Author Organization [employer] Address [address] [facility] 7t [place] [address] Care Team Providers Care Certification Officer Name Role Phone Cony Chapman MD Primary Care Provide r [place] Slade PharmD Unavailable Talia Suggs RN Unavailable [phone] Salma Workman Unavailable Allergies No known active allergies Medications * This document contains information received from the source organization and may not represent a complete record from that organization. fluticasone (Flonase) 50 MCG/ACT nasal sprayIndications :Sore throat,Stuffy nose INSTILL 2 SPRAYS IN EACH NOSTRIL ONCE DAILY 48 g 024 Active nicotine polacrilex (RA Mini Nicotine) 2 MG lozengeIndicatio ns:Tobacco dependence Dissolve 1 lozenge in the mouth every 1-2 hours as needed for cigarette cravings. 144 lozenge 025 Active Additional Information Patient not taking.Reported on 02/22/2025 escitalopram (Lexapro) 10 MG tabletIndication s:Anxiety Take 1 tablet (10 mg) by mouth Once per day. 30 tablet 2 025 2025 Active hydrOXYzine HCl (Atarax) 25 MG tabletIndication s:Anxiety Take 1 tablet (25 mg) by mouth every 8 (eight) hours if needed for anxiety. 30 tablet 1 025 Active gabapentin (Neurontin) 800 MG tabletIndication s:Lumbosacral radiculopathy Take 1 tablet (800 mg) by mouth 3 times daily. 90 tablet 3 025 2025 Active lidocaine (Lidoderm) 5 % patchIndications :Lumbosacral radiculopathy Apply 1 patch topically Once per day. Remove & discard patch within 12 hours or as directed by . 30 patch 2 Active lidocaine (Lidoderm) 5 % patchIndications :Lumbosacral radiculopathy Apply 1 patch topically Once per day. Remove & discard patch within 12 hours or as directed by . 30 patch 2 024 2024 Discontinued(R eorder (will not trigger notification to Pharmacy)) nicotine (Nicoderm CQ) 14 MG/24HR patchIndications :Tobacco dependence Place 1 patch on the skin 1 (one) time each day at the same time. 21 patch 1 025 2024 Discontinued gabapentin (Neurontin) 300 MG capsuleIndicatio ns:Radiculopathy , unspecified spinal region Take 1 capsule (300 mg) by mouth 3 times daily. 90 capsule 11 025 2024 Discontinued omeprazole (PriLOSEC) [address] capsuleIndicatio ns:Heartburn Take 1 capsule (20 mg) by mouth before breakfast and before evening meal. Do not crush or chew. 180 capsule 025 2024 Discontinued gabapentin (Neurontin) 600 MG tabletIndication s:Lumbosacral radiculopathy Take 1 tablet (600 mg) by mouth 3 times daily. 90 tablet 1 025 2024 Discontinued Hospital, Clinic, or Other Facility Administered Medication Ordered Dose Route Frequency Start Date End Date Status ketorolac (Toradol) injection 30 mgIndications:Lumbosacral radiculopathy 30 mg IM Once 02/22/2025 02/22/2025 Ended Active Problems Problem Noted Date Diagnosed Date Moderately severe depression 02/22/2025 RAMON (generalized anxiety disorder) 02/22/2025 Current severe episode of ma miesha depressive disorder without psychotic features without prior episode (CMS/HCC) 02/03/2025 Assessment & Plan (02/03/2025 4:19 PM EDT): - Anxiety with episodes of increased eating and insomnia, exacerbated by psychosocial stressors. - Prescribed hydroxyzine as needed for acute anxiety, especially at night. Initiate daily antidepressant therapy (escitalopram or citalopram, pending final selection). Scheduled follow-up phone call in 4-6 weeks to assess response to medication. Health care maintenance 08/03/2024 Osteoarthritis of left [...] how to properly take the medication and [employer] appointments was done, I let him know if during comes back abnormal I will have to discontinue this medication Tobacco dependence 04/08/2024 Assessment & Plan (04/08/2024 [...] 5/325mg Q 12hrs PRN patient referred for [employer] extensive discussion done about adherence to contract, in person appointment, pill count and random utox, I explained I will not go up on dose Chronic pain of both knees 10/06/2023 Assessment & Plan (02/03/2025 4:18 PM EDT): - Chronic pain of both knees improved after placement of nerve stimulator. Pain persists but sleep quality has improved. - Continue current pain management regimen. Increase gabapentin dosage to 600 mg three times daily, with plan to titrate up to 800 mg as needed. Prescribed anti-inflammatory medication for arthritis-related joint pain. Will follow up to confirm the specific medication name and dosage. 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 - Increase gabapentin dosage to 600 mg three times daily, with plan to titrate up to 800 mg as needed. Monitor response to therapy. Assessment & Plan (08/03/2024 11:44 AM EDT): [...] helps w symptoms Infestation by Sarcoptes scabiei etahn hominis Pruritic dermatitis 09/04/2022 Heartburn 09/04/2022 Assessment & Plan (02/03/2025 4:19 PM EDT): - Heartburn with nocturnal symptoms and episodes of gastric discomfort. - Prescribed omeprazole 20 mg, instructed to take two capsules daily. Advised dietary modifications: avoid late meals, spicy foods, coffee, fast food, pizza, heavy sauces, and tomato-based products. Assessment & Plan (10/31/2022 2:35 PM EDT): [...] RTC for transfer appointment next available one Resolved Problems Problem Noted Date Diagnosed Date Resolved Date Anxiety 02/03/2025 02/22/2025 Assessment & Plan (02/03/2025 4:19 PM EDT): - Anxiety with episodes of increased eating and insomnia, exacerbated by psychosocial stressors. - Prescribed hydroxyzine as needed for acute anxiety, especially at night. Initiate daily antidepressant therapy (escitalopram or citalopram, pending final selection). Scheduled follow-up phone call in 4-6 weeks to assess response to medication. [facility] (current) use of opiate analgesic 07/05/2024 02/03/2025 Encounters * This document contains information received from the source organization and may not represent a complete record from that organization. Date Type Department Care Team Description 03/07/2025 Patient Outreach [facility] [address] [place] [id number] Cony Chapman MD Care Management (HOUSING APPLICATION QUESTION) 03/03/2025 Patient Outreach [facility] [address] [place] [address] Cony Chapman MD Care Management (C3- FOLLOW UP CALL ) 02/22/2025 11:15 AM EST Office Visit [address] [address] Cony Chapman MD Current severe episode of major depressive disorder without psychotic features without prior episode (CMS/HCC) (HCC) (Primary Dx); Lumbosacral radiculopathy 02/22/2025 Plan of Care Documentation [address] [address] 02/22/2025 Plan of Care Documentation [address] [phone] 02/22/2025 Travel 02/22/2025 Patient Outreach [address] [address] Cony Chapman MD Care Management ([facility] COMPLEX INITIAL ASSESSMENT/ ENROLLMENT ) 02/21/2025 Patient Outreach [address] [address] Cony Chapman MD Care Coordination (C3 -[facility] Salma Stevensz ) 02/21/2025 Patient Outreach [address] [address] Cony Chapman MD Care Coordination (C3 [facility] Workman telephone call outreach) 02/04/2025 Patient Outreach [address] [address] Cony Chapman MD Care Coordination (C3 [facility] Salma Workman chart review ) 02/04/2025 Patient Outreach [address] [address] Cony Chapman MD Care Management ([facility] -CHART REVIEW/) 02/04/2025 Patient Outreach [address] [address] Cony Chapman MD 02/03/2025 11:15 AM EDT Office Visit [address] [address] Cony Chapman MD Chronic pain of both knees (Primary Dx); Lumbosacral radiculopathy; Heartburn; Current severe episode of major depressive disorder without psychotic features without prior episode (CMS/HCC) (HCC); Anxiety; Encounter for immunization 02/03/2025 Travel 02/02/2025 Telephone [facility] [address] [place] [address] Cony Chapman MD Chart Prep 01/26/2025 Patient Outreach [facility] [address] [place] [address] Cony Chapman MD Pre-visit Planning ([facility] screening completed on 07/27/2024) from Last 3 Months Immunizations Immunization Administration Dates Next Due Influenza, seasonal, injectable, preservative fr ee 02/03/2025,04/08/2024 Pneumococcal Conjugate PCV 20 04/08/2024 Family History [...] with others, in a hotel, in a longterm, living outside on the street, on a [...] Sign Reading Time Taken Comments Blood Pressure 112/74 02/22/2025 11:08 AM EST Pulse 70 02/22/2025 11:08 AM EST Temperature 35.8 C (96.4 F) 02/22/2025 11:08 AM EST Respiratory Rate 17 02/22/2025 11:08 AM EST Oxygen Saturation 97% 02/22/2025 11:08 AM EST Inhaled Oxygen Concentration - - Weight 113 kg (250 lb) 02/22/2025 11:08 AM EST Height 177.8 cm (5' 10 ) 02/22/2025 11:08 AM EST Body Mass Index 35.87 02/22/2025 11:08 AM EST Plan of Treatment Upcoming Encounters Date Type Department Care Team (Late st Contact Info) Description 04/01/2025 11:00 AM EST Telemedicine [facility] [address] [place] [address] Cony Chapman MD [address] [place] [address] Health Maintenance Due Date Last Done Comments CT Colonography 1978 Colonoscopy 1978 FIT 1978 Sigmoidoscopy 1978 Disability Screening 1978 Family Planning (PISQ) 1993 DTaP/Tdap/Td Vaccines (1 - Tdap) 1997 Hepatitis B Vaccines (1 of 3 - 19+ 3-dose series) 1997 COVID-19 Vaccine ( - 2024-2 6 season) 2024 FOBT 06/18/2025 06/18/2024 Depression Monitoring 08/22/2025 02/22/2025 , 02/22/2025 Alcohol/Substance Use Screening 02/03/2026 02/03/2025 SDOH Screening 02/21/2026 02/21/2025 Tobacco Screening 02/22/2026 02/22/2025 Lipid Panel 02/04/2027 02/04/2022 Colorectal Cancer Screening 06/18/2027 FIT DNA/Cologuard 06/18/2027 06/18/2024 Zoster Vaccines (1 of 2) 2028 RSV Patients and Patients Aged 60 years or older (1 - 1-dose 75+ series) 2053 HIV Screening Completed 02/04/2022 Hepatitis C Screening Completed 02/04/2022 Pneumococcal Vaccine: Pediatrics (0 to 5 Years) and At-Risk Patients (6 to 49) Years Completed 04/08/2024 Influenza Vaccine Completed 02/03/2025, 04/08/2024 HIB Vaccines Aged Out No longer [...] Result Negative Negative 06/24/19 10:54 PM EST [facility] (CLIA #:[id number]) Comment: NEGATIVE TEST RESULT. A negative Cologuard [...] screened with both Cologuard and colonoscopy. (Vito T. et al, N Engl J Med 2014;370(14):5953-9166) The normal value (reference range) for this assay is negative. COLOGUARD RE-SCREENING RECOMMENDATION: Periodic colorectal cancer screening is an important part of preventive healthcare for asymptomatic individuals at average risk for colorectal cancer. Following a negative Cologuard result, the [place] Cancer Society and U.S. Multi-Society Task Force screening guidelines recommend a Cologuard re-screening interval of 3 years. References: [place] [employer] Guideline for Colorectal Cancer Screening: https://www.cancer.org/cancer/euhzo-yzffjz-qwalty/hccajsjuf-mogrucvro-jwbkyyy/ac s-rec ommendations.html.; Mookie STERN, Christa PRETTY, Shayla SEGURA, Colorectal Cancer Screening: Recommendations for Physicians and Patients from the U.S. Multi-Society Task Force on Colorectal Cancer Screening , Am J Gastroenterology 2017; 112:4993-3746. TEST DESCRIPTION: Composite algorithmic analysis of stool [...] screened with both Cologuard and colonoscopy. (Vito Thomas. et al, N Engl J Med 2014;370(14):5653-1813.) Cologuard may produce a false negative or false positive result (no colorectal cancer or precancerous polyp present at colonoscopy follow up). A negative Cologuard test result does not guarantee the absence of CRC or advanced adenoma (pre-cancer). The current Cologuard screening interval is every 3 years. ([place] Cancer Society and U.S. Multi-Society Task Force). Cologuard performance data in a 10,000 patient pivotal study using colonoscopy as the reference method can be accessed at the following location: www.LumiThera/results. Additional description of the Cologuard test process, warnings and precautions can be found at www.Mobshoprd.com. Stool specimen (specimen) 06/18/2024 7:45 AM EST 06/19/2024 12:48 PM EST Cony Arango MD LAB MOLECULAR DIAGNOS TICS ORDERABLES Final Result [facility] (CLIA #:[id number]) [place] [address], [place] [phone] * HEPATITIS C AB W/REFL TO HCV [...] a test for HCV RNA (test code 00489) is suggested. For additional information please refer to http://pbsi.Xiaoi Robert/faq/AVZ85y4 (This link is being provided for informational/ educational purposes only.) 02/04/2022 8:41 AM EDT Cony Arango MD HISTORICAL/NON ORDERA BLE LABS Final Result CONVERTED LEGACY LABS * HIV 1/2 ANTIGEN/ANTIBODY,FOURTH [...] purpose. For additional information please refer to http://pbsi.[employer].JollyDeck/faq/NFX793 (This link is being provided for informational/ [...] equation in the estimation of LDL-C. Almas SS et al. KEVYN. 2013;310(19): 1282-4991 (http://education.Pro Breath MD.JollyDeck/faq/IKS546) Non-HDL Cholesterol 111 <130 mg/dL (calc) CONVERTED [...] Most Recently Relevant to Health Maintenance Insurance [facility] C3 HSN PARTIAL Care Teams Certification Officer Relationship Specialty Start Date End Date Cony Chapman MD [address] [place] [address] PCP - General Family Medicine 02/01/22 [place] Slade, CrissD [address] [place] [address] Pharmacist Internal Medicine 09/03/24 Talia Suggs, KATHY [address] [place] [address] Registered Nurse Family Medicine 02/04/25 Salma Workman 02/04/25
--- OUTSIDE RECORDS SUMMARY | 2025-03-09 16:07 | XMS_ITS ---
Author Organization [employer] Address [address] [place] [address] 7 [place] [address] Care Team Providers Care Putty Tinter Maker Name Role Phone Cony Chapman MD Primary Care Provide r [place] Slade PharmD Unavailable [phone] Talia Suggs RN Unavailable Salma Workman Unavailable [facility] Complex Status:Enrolled (Active) Start date:02/04/2025 Enrollment date:03/03/2025 Enrollment reason:Referred by provider Overview housing insecurity, anxiety, deprssion . Please outreach to patient. Case Team Name Relationship Phone Salma Workman(Responsible Staff) Continued Care and Services Coordination
--- OUTSIDE RECORDS SUMMARY | 2025-03-09 16:07 | XMS_ITS | Encounter Summary ---
Author Organization [employer] Address [address] [facility] 7t [place] [address] Care Team Providers Care Nozzle Cement Sprayer Helper Name Role Phone Cony Chapman MD Primary Care Provide r [place] Sl[place] PharmD Unavailable [phone] Talia Suggs RN Unavailable [phone] Salma Workman Unavailable Encounter Details Date Type Department Care Team (Late st Contact Info) Description 12/08/2023 Orders Only [facility] [address] [place], [place] [phone] Cony Chapman MD [address] [place], [place] [phone] Social History Tobacco Use Types Packs/Day Years [...] Info) Description 04/01/2025 11:00 AM EST Telemedicine [facility] [address] [place] [address] Cony Chapman MD [address] [place] [phone] documented as of this encounter Visit Diagnoses Not on filedocumented in this encounter Additional Health Concerns Assessment Noted Time PHQ-9 Depression Total Score: 18 024 10:00 AM EDT documented as of this encounter Care Teams Nozzle Cement Sprayer Helper Relationship Specialty Start Date End Date Cony Chapman MD [address] [place] [phone] PCP - General Family Medicine 02/01/22 [place] Slade, CrissD [address] [place] [phone] Pharmacist Internal Medicine 09/03/24 Talia Suggs, KATHY [address] [place] [address] Registered Nurse Family Medicine 02/04/25 Salma Workman 02/04/25 documented as of this encounter
--- OUTSIDE RECORDS SUMMARY | 2025-03-09 16:07 | XMS_ITS | Encounter Summary ---
Author Organization [employer] Address [address] [facility] 7t [place] [address] Care Team Providers Care Hot Die Press Operator Name Role Phone Cony Chapman MD Primary Care Provide r [place] Slade PharmD Unavailable [phone] Talia Suggs RN Unavailable [phone] Salma Workman Unavailable Reason for Visit * Reason Comments Med Refill Encounter Details Date Type Department Care Team (Late st Contact Info) Description 12/19/2023 Refill [facility] [address] [place], [place] [phone] Cony Chapman MD [address] [place], [place] [phone] Bilateral chronic knee pain Social History Tobacco [...] Info) Description 04/01/2025 11:00 AM EST Telemedicine [facility] [address] [place] [address] Cony Chapman MD [address] [place] [address] documented as of this encounter Visit Diagnoses Diagnosis Bilateral chronic knee pain documented in this encounter Additional Health Concerns Assessment Noted Time PHQ-9 Depression Total Score: 18 024 10:00 AM EDT documented as of this encounter Care Teams Hot Die Press Operator Relationship Specialty Start Date End Date Cony Chapman MD [address] [place] [address] PCP - General Family Medicine 02/01/22 [place] Slade, CrissD [address] [place] [address] Pharmacist Internal Medicine 09/03/24 Talia Suggs, KATHY [address] [place] [address] Registered Nurse Family Medicine 02/04/25 Salma Workman 02/04/25 documented as of this encounter
--- OUTSIDE RECORDS SUMMARY | 2025-03-09 16:07 | XMS_ITS ---
Author Organization [employer] Address [address] [place] [address] 7 [place] [address] Care Team Providers Care Associate Professor Of Literacy Name Role Phone Cony Chapman MD Primary Care Provide r [place] Slade PharmD Unavailable Talia Suggs RN Unavailable [phone] Salma Workman Unavailable CM Complex Status:Enrolled (Active) Start date:02/04/2025 Enrollment date:02/22/2025 Enrollment reason:Referred by provider Overview Provider Referral- housing insecurity, anxiety, deprssion Case Team Name Relationship Phone Talia Suggs RN(Responsible Staff) Registered Nurse Continued Care and Services Coordination
--- OUTSIDE RECORDS SUMMARY | 2025-03-09 16:07 | XMS_ITS | Encounter Summary ---
Author Organization [employer] Address [address] [place] [address] 7 [place] [address] Care Team Providers Care Rental Coordinator Name Role Phone Cony Chapman MD Primary Care Provide r [place] Slade PharmD Unavailable Talia Suggs RN Unavailable Salma Workman Unavailable Reason for Visit * Reason Comments Med Refill Encounter Details Date Type Department Care Team (Late st Contact Info) Description 08/26/2024 Refill [facility] [address] [place], [place] [phone] Michelle Elizondo MD [address] [place], [place] [phone] Bilateral chronic knee pain Social History Tobacco [...] with others, in a hotel, in a snf, living outside on the street, on a [...] Info) Description 04/01/2025 11:00 AM EST Telemedicine [facility] [address] [place] [address] Cony Chapman MD [address] [place] [address] documented as of this encounter Visit Diagnoses Diagnosis Bilateral chronic knee pain documented in this encounter Additional Health Concerns Assessment Noted Time PHQ-9 Depression Total Score: 11 025 9:54 AM EDT documented as of this encounter Care Teams Rental Coordinator Relationship Specialty Start Date End Date Cony Chapman MD [address] [place] [phone] PCP - General Family Medicine 02/01/22 [place] Sl[place], PharmD [address] [place] [address] Pharmacist Internal Medicine 09/03/24 Talia Suggs, KATHY [address] [place] [address] Registered Nurse Family Medicine 02/04/25 Salma Workman 02/04/25 documented as of this encounter
== END 2025-03-09 09:33 | disposition home or self-care (01) ==
LOC: HO.PMC 08:25
PROVIDERS: PCP Internal Medicine; Visit Provider Internal Medicine
DX: M25.561 Pain in right knee (principal); M25.562 Pain in left knee
CPT/HCPCS: 64585